=== PATIENT | male | born 1935 | race Caucasian/White ===

== ENCOUNTER 2016-08-19 16:00 | Inpatient (IN) | payer MEDICARE ==
[~2016-08-19] VITALS: Ht 170.2 cm; Wt 79.6 kg
--- NOTE | ~2016-08-19 | CON ---
PATIENT'S NAME: [facility] AGE: 80 Y [address] ROOM: [place] [address] LOCATION: GPCU ADMIT DATE: 08/19/2016 Consultation DISCHARGE DATE: FAMILY PHYSICIAN: TIEN BETANCOURT MD ATTENDING PHYSICIAN: SLIME DIAZ DATE OF CONSULTATION: 08/24/2016 REFERRING PHYSICIAN: NIKA NYE MD This is a [facility] Nephrology consultation. REASON FOR CONSULTATION: Acute kidney injury on chronic kidney disease stage 3 and history of solitary kidney. HISTORY OF PRESENT ILLNESS: This is a 80-year-old male patient who was admitted after a new onset weakness after recent history of right ischemic stroke on 08/07/2016. The patient has had multiple health issues over the past few weeks noting new onset of congestive heart failure with low ejection fraction. The patient was admitted and worked up at that time and found to have an EF of 20% to 25%. The patient also had an MRI of his brain at that time that did show evidence of stroke. The patient has known history of chronic kidney disease stage 3 and is status post left nephrectomy secondary to renal cell carcinoma in 2014. History also included recent diagnosis of prostate cancer, on radiation therapy in [place], [place]. Also include hypertension, peripheral arterial disease status post left carotid endarterectomy, as well as, recent ischemic stroke on the right side. On admission the creatinine wzs 1.9 and today is elevated to 2.1. Dr. Collado would like to pursue a heart catheterization for further evaluation of the patient's cardiac status. However, due to the patient's increasing creatinine from 1.9 to 2.1, Dr. Ruth has been asked to manage the patient while he is hospitalized. He is also asked to provide recommendations for the patient to proceed with left heart catheterization. PAST MEDICAL HISTORY: As listed above including. 1. Congestive heart failure with reduced ejection fraction. PATIENT'S NAME: [facility] AGE: 80 Y [address] ROOM: [place] [address] LOCATION: GPCU ADMIT DATE: 08/19/2016 Consultation DISCHARGE DATE: FAMILY PHYSICIAN: TIEN BETANCOURT MD ATTENDING PHYSICIAN: SLIME DIAZ 2. Chronic kidney disease stage 3. 3. History of left renal cell carcinoma, status post nephrectomy in 2015. 4. CVA. 5. Hypertension. 6. Peripheral artery disease, status post left endarterectomy. 7. Prostate cancer, undergoing radiation. 8. Solitary kidney. PAST SURGICAL HISTORY: As listed above including. 1. Left nephrectomy. 2. Left heart catheterizations, multiple. 3. Left carotid endarterectomy. ALLERGIES: NONE TO MEDICATION. CURRENT HOME MEDICATIONS: Include: 1. Aspirin 81 mg daily. 2. Amlodipine 5 mg daily. 3. Lipitor 20 mg daily. 4. Aspirin 325 mg q.4 hours p.r.n. pain. 5. Toprol-XL 50 mg daily. 6. BuSpar 7.5 mg twice a day. 7. Melatonin 1 mg to 3 mg p.o. at bedtime p.r.n. insomnia. 8. Prilosec 20 mg twice a day. 9. Lisinopril 20 mg daily. 10. Hydrochlorothiazide 12.5 mg p.o. every 48 hours. 11. Nitroglycerin 0.4 mg sublingually every 5 minutes p.r.n. chest pain. 12. Azo-Cranberry tablets one tablet daily. 13. Bowel cleanse one tablet p.o. daily. FAMILY HISTORY: Reviewed and is noncontributory. There is no history of renal disease or dialysis. Family history is significant for hypertension. SOCIAL HISTORY: The patient denies any social addictions. He denies any alcohol or tobacco abuse or illicit drug use. REVIEW OF SYSTEMS: GENERAL: Denies any fever, chills, or night sweats. EYES: No double vision or blurred vision. NOSE: No epistaxis or rhinorrhea. PATIENT'S NAME: [facility] AGE: 80 Y [address] ROOM: [place] [address] [facility] ADMIT DATE: 08/19/2016 Consultation DISCHARGE DATE: FAMILY PHYSICIAN: TIEN BETANCOURT MD ATTENDING PHYSICIAN: SLIME DIAZ MOUTH: No gingival bleeding. Positive left-sided facial droop, residual from recent stroke. THROAT: No sore throat or cough. RESPIRATORY: Denies wheezing or hemoptysis. CARDIOVASCULAR: Denies any chest pain currently, has had recent chest pain and is following with Cardiology. GASTROINTESTINAL: Denies nausea, vomiting, or diarrhea. He is currently n.p.o. GENITOURINARY: He does report some hesitancy with urination. Reports incomplete voiding. Denies any hematuria. History of prostate cancer, under radiation therapy. IMMUNOLOGICAL: He denies recent infections. HEMATOLOGICAL: Denies bruising or easy bleeding. He is on aspirin and Plavix therapy outpatient secondary to CVA. NEUROLOGICAL: He denies depression or anxiety. PHYSICAL EXAMINATION: VITAL SIGNS: Blood pressure is 139/80, respirations 18, pulse 84, temperature 96.8, sats 93% on room air. GENERAL: On exam, this is an alert and oriented, white male who appears his approximate stated age is in no acute distress. He is alert and oriented x3. HEENT: Head: Normocephalic and atraumatic. Eyes: Pupils equal, round, briskly to light and accommodation. EOMs are intact. Nose: Midline. Mouth: No gingival bleeding. Mucous membranes are moist. Throat is without lymphadenopathy or carotid bruits. He does have a scar to the left carotid status post endarterectomy. RESPIRATORY: Lung sounds are clear to auscultation bilaterally. CARDIOVASCULAR: Regular rate and rhythm with grade 2/6 systolic ejection murmur heard best radiating to the carotids. ABDOMEN: Soft, nontender, and nondistended. Bowel sounds positive. EXTREMITIES: Show no signs of peripheral edema, clubbing, or cyanosis. NEUROLOGICAL: There is left facial droop noted. The patient is 4/5 extremity in the left upper extremity as well as the left lower extremity and 5/5 in the right upper extremity. RADIOLOGY: V/Q scan is currently pending. LABORATORY DATA: WBCs 8.5, hemoglobin 15.3, hematocrit 46.1, platelets 160. Glucose is 111, BUN is 38, creatinine 2.1. Sodium 143, potassium 4.4, chloride 106, CO2 is 27, calcium 9.1, albumin is 3.1, phosphorus is 4.4, and magnesium is 2.0. ASSESSMENT AND PLAN: 1. Acute kidney injury on chronic kidney disease stage 3 to 4, this is likely multifactorial secondary to solitary kidney with the use of JOSE PATIENT'S NAME: [facility] AGE: 80 Y [address] ROOM: [address] [place], [place] [address] [facility] ADMIT DATE: 08/19/2016 Consultation DISCHARGE DATE: FAMILY PHYSICIAN: TIEN BETANCOURT MD ATTENDING PHYSICIAN: SLIME DIAZ inhibitors and PPIs as outpatient. Dr. Ruth does recommend that we obtain the most recent outpatient creatinine for comparison. This is likely cardiorenal secondary to the patient's decreased ejection fraction. We will also check a renal ultrasound to rule out obstruction due to the patient's current history of prostate cancer with voiding complaints. At this time, Dr. Ruth does feel that it is okay to restart his JOSE inhibitor for blood pressure management. 2. History of solitary kidney. At this time, Dr. Ruth would prefer to avoid any heart catheterization until further information has been obtained as to the patient's current baseline creatinine. I have discussed this with Dr. Collado via telephone at the time of the exam. 3. Coronary artery disease. Cardiology is following. This patient has been seen and assessed by Dr. Ruth. His care is being conducted in consultation with Dr. Ruth as well as me. We will plan further recommendations as they are forthcoming. In the interim at this time, we do advise against following with a heart catheterization for further evaluation of the patient's coronary status. OUSMANE QUINTANA DNP, TRANSFER CONTROLLER FOR MD CAROLINA LORENZO/modl /[id number] d: 08/25/16 1330 t: 09/08/16 1557, CONSULTATION REPORT
--- NOTE | ~2016-08-19 | ECHO ---
Transthoracic Echocardiography Report (TTE) Demographics Patient Name MAURISIO [facility]OPE[facility] Date of Study 08/26/2016 Patient Number [id number] Visit Number [id number] Date of 1935 Room Number G6307 Gender Male Number Age 80 year(s) Referring Tobias Oquendo Behavioral Therapy Coordinator Jenny Samuel Physician [facility] Avelino Deng Physician Interpreting Tobias Oquendo Front Desk Representative Physician Supervising Ordering Tobias Oquendo MD/ADOLFOP Physician MD Nurse Stress Snow Blower Conclusions Summary Limited echo was performed to re-evaluate LV systolic function. Definity was administered to better delineate endocardial borders. The estimated left ventricular ejection fraction is 35%.WMAs cannot be confidently commented on. Normal RV size and function. Normal sized atria. Normal appearing mitral and tricuspid valves. Procedure Type of Study TTE procedure:2D Echocardiogram, Echo Limited w/o Contrast. Procedure Date Date: 08/26/2016 Start: 07:08 AM Study Location: Inpatient Portable Technical Quality: Fair Indications:Re-evaluate LV systolic function. Appropriate Use Criteria: 9 Patient Status: Routine Contrast Medium: Definity. Amount - 2 ml HR: 69 bpm BP: 152/70 mmHg Allergies - Iodine:(pre medicated with benadryl and solucortef). Signature dtt: Azra Collado dtd: 08/26/16 0708 Physician Self Edit
--- NOTE | ~2016-08-19 | CON ---
PATIENT'S NAME: MAURISIO [facility]OPE[facility] AGE: 80 Y [address] ROOM: [place] [address] LOCATION: [facility] ADMIT DATE: 08/19/2016 Consultation DISCHARGE DATE: FAMILY PHYSICIAN: SYLVIA BETANCOURT MD ATTENDING PHYSICIAN: SLIME DIAZ DATE OF CONSULTATION: 08/23/2016 REFERRING PHYSICIAN: NIKA NYE MD CHIEF COMPLAINT: Right hand numbness, multilevel cervical spinal stenosis. HISTORY OF PRESENT ILLNESS: The patient is a 80-year-old male patient who has multiple medical comorbidities, especially congestive heart failure with very low ejection fraction, was admitted under the hospitalist on August 19, 2016, with acute onset left arm and leg weakness. He was investigated with a brain MRI and that showed evidence of a stroke. During the admission, the patient was complaining of continued constant right hand numbness and intermittent neck pain. He had a cervical spine MRI done during this hospitalization and that showed multilevel degenerative joint disease and spinal stenosis. I was asked to assess the patient with regard to that. I met the patient on the torrez. The patient reported history of right thumb and index finger tingling for over a year. He denied any worsening of that recently. He indicated that prior to the admission, he had an acute onset left arm and leg weakness. He indicated that the weakness is slowly improving. He denied significant neck pain. He is mobilizing without any assistance at home. He denied falls. PAST MEDICAL AND SURGICAL HISTORY: Heart failure, kidney failure, coronary artery disease, hypertension, renal cell carcinoma, peripheral vascular disease, and prostate cancer. MEDICATIONS: Listed in the patient's chart. ALLERGIES: NO KNOWN DRUG ALLERGIES. REVIEW OF SYSTEMS: All points review of systems were asked about. Pertinent positives were mentioned in HPI. SOCIAL HISTORY: PATIENT'S NAME: MAURISIO [facility]OPE[facility] AGE: 80 Y [address] ROOM: [place] [address] LOCATION: [facility] ADMIT DATE: 08/19/2016 Consultation DISCHARGE DATE: FAMILY PHYSICIAN: SYLVIA BETANCOURT MD ATTENDING PHYSICIAN: SLIME DIAZ He denies alcohol drinking. He is a nonsmoker. FAMILY HISTORY: Noncontributory to the patient's presentation. PHYSICAL EXAMINATION: GENERAL: The patient was cooperative and pleasant. HEENT: Head: Atraumatic. Sclerae examination was normal. NECK: He had limited range of motion in all directions. No tenderness to palpation. No palpable masses. LYMPHATIC: No cervical lymphadenopathy. RESPIRATORY: He was not in any respiratory distress. CARDIOVASCULAR: He had palpable pulses in the upper extremities. GAIT: Not done. BACK: Not done. MOUTH AND THROAT: No mucosal lesions. NEUROLOGIC: He was alert and oriented. Pupils were 3 mm and reactive. Motor examination showed pyramidal weakness in the left upper and lower extremities. He had no weakness in the right hand/leg. Sensory examination showed decreased sensation in the right hand. Karen and Babinski signs were negative. No evidence of clonus. INVESTIGATIONS: Cervical spine MRI done on August 22, 2016, which I personally reviewed. It showed evidence of severe multilevel degenerative joint disease throughout the cervical spine. It showed evidence of loss of the normal cervical lordosis. It showed evidence of moderate stenosis at C4-5, C5-6 levels. It also showed evidence of multilevel and bilateral foraminal stenosis. No evidence of acute spinal cord injury. IMPRESSION AND PLAN: A 80-year-old male patient who is currently admitted under the hospitalist for management of an ischemic stroke. The patient is complaining of numbness in his right hand and his cervical spine MRI showed multilevel degenerative joint disease, associated with moderate stenosis at C4-5 and C5-6 levels. The patient has multiple medical comorbidities, especially congestive heart failure with very low ejection fraction. I do not think the patient's acute weakness is related to the cervical spinal stenosis. RECOMMENDATIONS: I recommended nonoperative treatment of moderate in multilevel cervical spinal stenosis. I recommended a use of soft neck collar for comfort. I also indicated that the patient is a very high risk surgical candidate given the congestive heart failure and the other medical comorbidities. I also indicated that upper extremities nerve conduction studies is also needed to PATIENT'S NAME: MAURISIO LOPEZ [facility] AGE: 80 Y [address] ROOM: [id number] [place] [id number] LOCATION: [facility] ADMIT DATE: 08/19/2016 Consultation DISCHARGE DATE: FAMILY PHYSICIAN: SYLVIA BETANCOURT MD ATTENDING PHYSICIAN: SLIME DIAZ evaluate for carpal tunnel syndrome. The patient asked appropriate questions and those were answered to his satisfaction. It was pleasure taking care of this patient and thanks for having us involved. MD NEERU CAMACHO/genet /[id number] CC: MD Sylvia Srivastava MD d: 08/23/16 1753 t: 08/24/16 0753, CONSULTATION REPORT
--- NOTE | ~2016-08-19 | DS ---
PATIENT'S NAME: MAURISIO LOPEZ [facility] AGE: 80 Y [address] ROOM: [place] [address] LOCATION: GPCU ADMIT DATE: 08/19/2016 Discharge Summary DISCHARGE DATE: 09/01/2016 FAMILY PHYSICIAN: Sylvia Hernandez MD ATTENDING PHYSICIAN: Justin Morris ATTENDING PHYSICIAN: Rambo Banks M.D. FINAL DIAGNOSES: 1. Unstable angina. 2. History of coronary artery disease, status post stent. 3. History of chronic kidney disease with single kidney. 4. Percutaneous coronary intervention to left anterior descending. 5. Ejection fraction 37% by MUGA scan. 6. History of congestive heart failure. 7. History of right parietal cerebrovascular accident. 8. Hypertension. 9. Peripheral vascular disease. 10. Prostate cancer history. 11. Left carotid endarterectomy history. CONSULTATIONS: 1. Neurology, Dr. Borrego. 2. Nephrology, Dr. Schuler. 3. Neurosurgery, Dr. Milan. 4. Rehab, Dr. Guerra. 5. Cardiology, Dr. Collado. PROCEDURES: 1. Left heart catheterization by Dr. Collado. 2. Left heart catheterization with PCI by Dr. Collado. REASON FOR ADMISSION: This is a 80-year-old male who presented with weakness. The patient had weakness in his left arm as well as left leg. He was evaluated and then further transferred to [facility] for further evaluation and management of likely CVA. Please see Dr. Morris's admission H and P for further details. DIAGNOSTIC STUDIES: A transthoracic echocardiogram was done and showed hypokinesis of several segments with akinesis of the mid anterior and mid anteroseptal segments as well. Estimated ejection fraction was 20% to 25% with moderate concentric left ventricular hypertrophy. Diastolic assessment revealed grade 1 diastolic dysfunction. Left ventricle and atrium were dilated. Trivial aortic regurgitation was noted. Aortic stenosis, possibly severe was detected as well. A limited echocardiogram was then repeated to re- PATIENT'S NAME: MAURISIO LOPEZ [facility] AGE: 80 Y [address] ROOM: [place] [address] LOCATION: GPCU ADMIT DATE: 08/19/2016 Discharge Summary DISCHARGE DATE: 09/01/2016 FAMILY PHYSICIAN: Sylvia Hernandez MD ATTENDING PHYSICIAN: Justin Morris evaluate left ventricular systolic function and showed left ventricular ejection fraction of 35% with wall motion abnormalities that could not be confidently commented on. Normal size atria were noted. The patient had a left heart catheterization with Dr. Collado that showed severe 1 vessel coronary artery disease. The patient had an LAD disease. The patient was then taken down for PCI and cath showed successful PCI of the mid LAD coronary artery using a drug-eluting stent, also showed successful PCI of the distal LAD coronary artery using a drug-eluting stent. Accu-Cheks were done on admission and were in the range of 88 to 111. CPK 120. Troponin I less than 0.04 x4. ProBNP 4449. Serial CBCs were done and showed essentially normal white count on admission. White count on admission was 6.1, at the time of discharge was 13.3 and was likely thought to be reactive. Hemoglobin 14.8 on admission, 11.4 at discharge. Platelet count 140 on admission and 165 at discharge. Serial BMP showed normal electrolytes. The patient's BUN was 35 on admission and 49 at discharge, creatinine 1.8 on admission and 2.2 at the time of discharge. Liver function tests were normal. Magnesium 2.2. The patient had CKD 3. GFR was 29 on discharge. Lipid panel showed total cholesterol 186, triglycerides 161, HDL 39, and LDL 115. The patient was placed on a heparin drip that was monitored with PTT HP levels. UA was done on the day of discharge and it was negative for bacteria and leukocytes. UA done prior during this admission was negative for bacteria as well. Urine chloride random 77, urine sodium random 70. Procalcitonin level on the day of discharge was done and was 0.07. TSH 1.1. CK-MB 2.7. Urine potassium 44.0. The patient had a P2Y12 reaction that was 206 and was within range. D-dimer 1.45. MRI brain without contrast was done on admission for left-sided weakness and showed small [id number] ischemic infarcts to the right frontoparietal centrum semiovale and right parietal subcortex, likely correlating with left- sided weakness. Moderate brain atrophy noted. Cervical spine without contrast MRI scan showed multilevel degenerative changes throughout the cervical spine with moderate canal stenosis between C3-C4 and C5-C6, asymmetric disk protrusion to the right at C3 and C4 noted. Chest x-ray was done and showed no vascular congestion or acute parenchymal infiltrate. The patient underwent a V/Q scan for elevated D-dimer that showed low probability for pulmonary embolism. Ultrasound of the kidneys was done for possible obstruction and a history of prostate cancer and showed no ultrasound findings of right renal collecting system obstruction, surgically absent left kidney noted. The patient had belching. X-ray of abdomen showed generally prominent stool suggesting constipation, otherwise negative. The patient had a MUGA scan that showed ejection fraction of 34% on nuclear medicine gated cardiac study. Chest x-ray was done on the day of discharge for slight dyspnea and showed no vascular congestion or acute parenchymal infiltrate. PATIENT'S NAME: MAURISIO LOPEZ [facility] AGE: 80 Y [address] ROOM: [address] [place], [place] [address] LOCATION: GPCU ADMIT DATE: 08/19/2016 Discharge Summary DISCHARGE DATE: 09/01/2016 FAMILY PHYSICIAN: Sylvia Hernandez MD ATTENDING PHYSICIAN: Justin Morris A Urine culture was negative. HOSPITAL COURSE: This is a 80-year-old male who was transferred from an outlying facility. The patient had presented with left-sided weakness. He was evaluated and was thought to have a CVA. He was then transferred to [facility]. At [facility], the patient was evaluated by Teleneurology. He underwent an MRI brain that showed right parietal CVA. He was placed on aspirin and statin. Stroke workup was then initiated as well. His blood pressure was controlled. Echocardiogram was done and findings are as above. The patient's neurologic deficits then resolved. He was placed on aspirin, statin, and Plavix. Speech Therapy and PT/OT followed up with the patient. Rehab consult was obtained, but the patient did not require rehab placement. During the workup, the patient was found to have low ejection fraction. Cardiology was consulted. He underwent a left heart catheterization initially that showed severe LAD disease. The patient then underwent left heart catheterization with bicarb protocol to protect him from kidney dysfunction. The patient had developed acute kidney injury after his first left heart catheterization. Nephrology was consulted and followed up with the patient. His kidney function was closely monitored since he has a single solitary kidney secondary to surgical considerations. The patient's kidney function resolved, HERNANDEZ resolved. The patient then underwent PCI with Dr. Collado and received 3 stents to his LAD. The patient continued to do well. He had a slight hematoma in the right groin subsequent to the second PCI. The patient continued to do well. He was ambulating in the hallway. His HERNANDEZ had resolved. His kidney function was stable on the day of discharge. The patient did develop leukocytosis on discharge day; however, he did not have any fever. Chest x-ray showed no pneumonia. Procalcitonin level was normal. UA showed negative bacteria. The patient continued to do well, and he was discharged and asked to follow up with his primary care physician. DISCHARGE INSTRUCTIONS: The patient discharged on a cardiac diet with activity as tolerated. He is advised no driving until re-evaluated by PCP. Follow up with Dr. Guerra in 1 week time. Follow up with PCP, Dr. Sylvia Hernandez in 2 days' time. PCP to check a CBC and a BMP. Groin precautions to be observed. The patient to follow up with Dr. Schuler, Nephrology, on September 08 and needs a renal panel in 1 week. Follow up with Cardiac Rehab at [place], start in 7 days. Follow up with Dr. Collado in 7 days with BMP. The patient needs a bilateral nerve conduction study in upper extremities to check for carpal tunnel syndrome as outpatient, PCP to arrange. DISCHARGE MEDICATIONS: 1. Aspirin 81 mg p.o. daily. PATIENT'S NAME: MAURISIO LOPEZ [facility] AGE: 80 Y [address] ROOM: [address] [address] LOCATION: GPCU ADMIT DATE: 08/19/2016 Discharge Summary DISCHARGE DATE: 09/01/2016 FAMILY PHYSICIAN: Sylvia Hernandez MD ATTENDING PHYSICIAN: Justin Morris 2. Lipitor 80 mg p.o. at bedtime. 3. BuSpar 7.5 mg p.o. at bedtime. 4. Lopressor 25 mg p.o. t.i.d. 5. Prilosec 20 mg p.o. b.i.d. 6. Flomax 0.4 mg p.o. daily. 7. Brilinta 90 mg p.o. b.i.d. 8. Tylenol 650 mg p.o. q.6 hours p.r.n. pain. 9. Melatonin 1 mg p.o. at bedtime p.r.n. insomnia. 10. Cranberry tablet, 1 tablet p.o. daily. 11. Bowel cleanse 1 tablet p.o. daily with food per home regimen. This patient was managed by Hospitalist, Cardiology, and Neurology teams during this admission. RAMBO BANKS MD MT/modl /[id number] CC: Sylvia Hernandez MD d: 09/02/16 0944 t: 09/06/16 1327, DISCHARGE SUMMARY
--- NOTE | ~2016-08-19 | CATH ---
Cardiac Diagnostic Report Demographics Patient Name JOHN Raza Gender Male Date of 1935 Age 80 year(s) Patient Number [id number] Date of Study 08/25/2016 Visit Number [id number] Room Number G6[address] [place] [id number] Ht 170.18 cm Wt 79 kg Referring David Ward MD Primary Physician Physician Alexandra West MD Performing Tobias Secondary Physician Physician Azra LEUNG Diagnostic Tobias Assisting Physician Physician Azra LEUNG Interventional Physician Family Services Coordinator Physician Findings and Conclusions Diagnostic Findings and Conclusion Calcification involving proximal coronaries. LVEDP 14 Mild valvular aortic stenosis, gradient across aortic valve of 14 mmHg, Severe one vessel coronary artery disease. Contrast use = 45ml. Diagnostic Recommendations Maximize medications. Follow BMP, monitor renal function. Bring back for mid to distal LAD PCI. Procedure Description The patient was brought to the diagnostic cardiac catheterization-EP laboratory in the fasting, non-sedated state. Informed consent was obtained in the written and verbal form after the risks and benefits were explained. The patient had no further questions and agreed to proceed. The planned puncture-incision site(s) were shaved and prepped with ChloraPrep and draped in the usual sterile manner. Conscious sedation, supplemental oxygen, and pain control medications were delivered by a registered nurse under physician guidance. Surface ECG rhythm, blood pressure measurement, and pulse oximetry were monitored throughout the procedure. Arterial access. The access site was infiltrated with lidocaine. The vessel was entered with the Seldinger technique. A sheath was advanced into the vessel and used for catheter placement. Selective left coronary angiography. A catheter was advanced into the left coronary vessel ostium under Fluoroscopic guidance. Contrast was injected by hand. Images were obtained in multiple projections. Selective right coronary angiography. A catheter was advanced into the right coronary vessel ostium under fluoroscopic guidance. Contrast was injected by hand. Images were obtained in multiple projections. Left heart catheterization. A catheter was advanced across the aortic valve to the left ventricle under fluoroscopic guidance. Resting hemodynamics were obtained. Arterial artery hemostasis was achieved. The patient was transferred to PCU via cart accompanied by a nurse. The patient left the laboratory in stable condition. Diagnostic Cath Status: Urgent Procedure Procedure Type Diagnostic procedure:Angiography:, Coronary Angios w/[facility] Indications: Chest pain. The procedure was explained in detail to the patient. Risks, complications and alternative treatments were reviewed. Written consent was obtained. Medications Reviewed with Patient prior to Procedure. Angiographic Findings Dominance: Right Cardiac Arteries and Lesion Findings LMCA: Single stenosis. Lesion on LMCA: Mid subsection.20% stenosis . LAD: Multiple stenosis.D1 and D2 medium sized.There is a previous stent on 2nd Diag. Lesion on Prox LAD: Proximal subsection.20% stenosis . Lesion on Mid LAD: Mid subsection.90% stenosis .Culprit lesion. Comments:Type III mid to distal 80-90% long stenosis after D2. Lesion on 2nd Diag: Mid subsection.50% stenosis . LCx: Diffuse irregularity.Moderate diffuse disease. RCA: Diffuse irregularity.Dominant. Moderate diffuse disease. Coronary Tree Procedure Data Procedure Date Date: 08/25/2016Start: 03:15 PMEnd: 04:00 PM Entry Locations - Antegrade Percutaneous access was performed through the Right Femoral artery (Primary location). A 7 Fr sheath was inserted. Hemostasis was successfully obtained using Perclose ProGlide (Jain). Closure Comments: Deployed by Yunior Rust.. Procedure Medications Order and Administration + + + +-------+ !Time !Medication !Dosage !Route ! + + + +-------+ !08/25/2016 03:13 PM !Fentanyl !25 mcg ! ! + + + +-------+ !08/25/2016 03:15 PM !Versed !0.5 mg ! ! + + + +-------+ !08/25/2016 03:23 PM !Oxygen !2 l/min !NC ! + + + +-------+ !08/25/2016 03:43 PM !Fentanyl !25 mcg !I.V. ! + + + +-------+ Devices Used - A6 Fr. BS JL 4 Diag. Catheterwas used for:Left coronary angiography. - A6 Fr. BS JR 4 Diag. Catheterwas used for:Right coronary angiography. Contrast Material - Isovue 49108 ml Fluoroscopy Time: Diagnostic: 5:06 minutes. Total: 5:06 minutes. Fluoroscopy Dose: Diagnostic: 939 mGy. Total: 939 mGy. Estimated Blood Loss: 10 ml. Medical History Performed Procedures and Imaging Results - No ACC stress or imaging studies were performed. Allergies - Iodine:(pre medicated with benadryl and solucortef). Risk Factors The patient risk factors include:cerebrovascular disease, hypertension, last creatinine: 2.2 mg/dl, creatinine clearance: 30.92 ml/min, dyslipidemia, prior heart failure and prior [place] . Admission Data Admission Date: 08/19/2016 Admission Time: 04:53 PM Admit Source: [facility] care [facility] Insurance Payors: Medicare. Admission Medications + +------+------+ + + + + !Medication !Dosage!Times !Last !Last !Administered !Comments ! ! ! !Per !Delivery !Delivery ! ! ! ! ! !Day !Date !Time ! ! ! + +------+------+ + + + + !Beta Caryn! ! ! ! !Yes ! ! !(any) ! ! ! ! ! ! ! + +------+------+ + + + + !Statin (any)! ! ! ! !Yes ! ! + +------+------+ + + + + !Aspirin ! ! ! ! !Yes ! ! !(any) ! ! ! ! ! ! ! + +------+------+ + + + + !Clopidogrel ! ! ! ! !Yes ! ! + +------+------+ + + + + Clinical Evaluation Leading to Procedure - The patient's CAD presentation was assessed as: Unstable angina. - The patient's anginal syndrome during the past two weeks was assessed as: Class IV according to the [place] Cardiovascular Society Classification System (CCS). Anti-anginal medications were prescribed during the past two weeks. The medication is: Beta Blockers. [facility] . Ejection Fraction - 08/20/2016 - Method: Echocardiography. EF%: 25. Hemodynamics Condition: Rest O2 Consumption: Estimated: 251.22Heart Rate: 79 bpm Pressures (mmHg) +-----+ + !Site !Pressure ! +-----+ + !AO !2/0 (1) ! +-----+ + !AO !144/52 (86) ! +-----+ + !LV !158/7 ,13 ! +-----+ + !LV !160/9 ,14 ! +-----+ + !AO !143/63 (96) ! +-----+ + !LV !160/8 ,13 ! +-----+ + !AO !145/65 (98) ! +-----+ + Valve Gradients and Areas + +---------+---------+---------+ +---------+ + !Valve !Peak !Mean !Area !Index !Flow !Source ! + +---------+---------+---------+ +---------+ + !Aortic !17 !17 ! ! ! ! ! + +---------+---------+---------+ +---------+ + !Aortic !17 !17 ! ! ! ! ! + +---------+---------+---------+ +---------+ + Shunts Oxygen Values O2 Capacity 189.04 O2 Consumption 251.22 Signatures dtt: Azra Collado dtd: 08/25/16 1515 Physician Self Edit
--- NOTE | ~2016-08-19 | HP ---
PATIENT'S NAME: MAURISIO LOPEZ [facility] AGE: 80 Y [address] ROOM: [place] [address] LOCATION: GPCU ADMIT DATE: 08/19/2016 History & Physical DISCHARGE DATE: FAMILY PHYSICIAN: Victorino Ramsey MD ATTENDING PHYSICIAN: SLIME DIAZ DATE OF SERVICE: CHIEF COMPLAINT: Weakness. HISTORY OF PRESENT ILLNESS: A 80-year-old gentleman with a past medical history of a recent ischemic stroke on the right side; heart failure with reduced ejection fraction, last known ejection fraction 20% per patient; chronic kidney disease, stage III; solitary kidney secondary to left renal resection because of renal carcinoma; coronary artery disease with multiple stenting in the past; hypertension; peripheral arterial disease, status post left carotid endarterectomy, presented to [facility] with weakness which started at 12:30 this afternoon. While he was at home, he felt weak in his left arm as well as left leg and was not able to open door knobs and he started feeling numb in his left side of the face. It was not associated with any nausea, vomiting, or any chest pain. He denied any shortness of breath, PND, or leg swelling. He went to the [facility] and where on arrival [facility] Stroke Sale was 9. Neurology consultation was made at that time, and decision was made against the administration of the tPA secondary to contraindication of a recent ischemic stroke which he had on 08/07/2016 per MRI report. We do not have any other data from 2 weeks ago regarding stroke workup he had down at [facility]. REVIEW OF SYSTEMS: All other systems were reviewed and were negative except what is mentioned in the HPI. PAST MEDICAL HISTORY: Congestive heart failure with reduced ejection fraction; chronic kidney disease, stage III; coronary artery disease; CVA; hypertension; renal cell carcinoma; peripheral arterial disease; left endarterectomy; prostate cancer, undergoing radiation; and solitary kidney. MEDICATIONS: Being reconciled. ALLERGIES: NO KNOWN DRUG ALLERGIES. PATIENT'S NAME: MAURISIO LOPEZ [facility] AGE: 80 Y [address] ROOM: [place] [address] LOCATION: GPCU ADMIT DATE: 08/19/2016 History & Physical DISCHARGE DATE: FAMILY PHYSICIAN: Victorino Ramsey MD ATTENDING PHYSICIAN: SLIME DIAZ SOCIAL HISTORY: No ongoing alcohol or tobacco abuse. FAMILY HISTORY: Family history is significant for hypertension. PHYSICAL EXAMINATION: VITAL SIGNS: 170/90, 72, 16, and afebrile. GENERAL: In no acute distress. Alert and oriented x3. HEENT: Head atraumatic, normocephalic. Eyes: Nonicteric. No pallor. Oropharynx: Moist mucous membranes. CARDIOVASCULAR: S1, S2. Systolic ejection murmur radiating to the carotids. RESPIRATORY: Clear to auscultation bilaterally. ABDOMEN: Soft, nontender, and nondistended. Bowel sounds present. EXTREMITIES: No clubbing, cyanosis, or edema. PSYCH: Normal affect, mood, and speech. NEURO: Left facial droop is noted. 4/5 extremity power in left upper extremity as well as left lower extremity. Right extremity is 5/5 power. MUSCULOSKELETAL: No muscle tenderness or joint swelling noted. DIAGNOSTIC DATA: CAT scan from the outside facility did not show any acute intracranial abnormality. Troponin 1 set was negative. Hemoglobin was 18, white count was 8.1, platelets 175, and hematocrit 42. ASSESSMENT AND PLAN: Acute stroke leading to left-sided weakness; heart failure with reduced ejection fraction, compensated at this point; essential hypertension; solitary kidney; peripheral arterial disease, status post left endarterectomy; prostate cancer; history of renal carcinoma; recent ischemic stroke on 08/07/2016. ASSESSMENT: We are going to make this patient n.p.o. and admit to inpatient status. CTA of the head and neck will be done after GFR is available. Echo will be done in the morning. Neurology consultation will be obtained. We will start the patient on aspirin and Lipitor. We will allow permissive hypertension. SCDs will be placed for the DVT prophylaxis. Speech evaluation and PT/OT. We will obtain lipid profile as well as TSH levels. ProBNP levels have already been ordered. The patient is full code. SLIME DIAZ MD PATIENT'S NAME: MAURISIO LOPEZ [facility] AGE: 80 Y [address] ROOM: [place] [address] LOCATION: [facility] ADMIT DATE: 08/19/2016 History & Physical DISCHARGE DATE: FAMILY PHYSICIAN: Victorino Ramsey MD ATTENDING PHYSICIAN: SLIME DIAZ /[id number] D: [id number] T: [id number] HISTORY & PHYSICAL
--- NOTE | ~2016-08-19 | CON ---
PATIENT'S NAME: MAURISIO LOPEZ [facility] AGE: 80 Y [address] ROOM: [place] [address] LOCATION: [facility] ADMIT DATE: 08/19/2016 Consultation DISCHARGE DATE: FAMILY PHYSICIAN: Victorino Ramsey MD ATTENDING PHYSICIAN: SLIME MORRIS REFERRING PHYSICIAN: NIKA NYE MD CONSULTATION NOTE REQUESTING PHYSICIAN: This is consult for Dr. Morris, hospitalist. HISTORY OF PRESENT ILLNESS: This pleasant 80-year-old gentleman is referred for rehab evaluation, admitted on 08/19/2016 with left-side sudden onset of weakness, left upper extremity and to some extent left lower extremity. He also had some numbness in his left face too. No nausea. No headache. No double vision. No trauma. No falling, however, he has been evaluated and was found not a candidate for tPA. MEDICAL HISTORY: 1. Recent left-sided ischemic stroke, questionable. 2. History of coronary artery disease with ejection fraction of 20%. 3. Chronic kidney disease, stage 3. 4. Status post left kidney resection secondary to CA of kidney. 5. Congestive heart failure. 6. Peripheral vascular disease. 7. Hypertension. 8. Coronary artery disease with multiple stenting per history. 9. Left carotid endarterectomy. At the present time, he is on radiation for CA of the prostate. He feels now better, can move left upper and lower extremity with a muscle strength of about, at best at 4-, slightly decreased coordination, and very mild left facial droop. Tongue and soft palate are moving symmetrical. There is no visual cut at the present time. Voice is clear and not wet. Soft palate and tongue are moving symmetrically. At the present time, he has no visual cut and/or neglect. VITAL SIGNS: Blood pressure 175/80, temperature 97.5, pulse 75, and respiratory rate 17. He is 5 feet 7 inches and weighs 77.7 kg. Denied any dizziness. No seizure disorder. No other complaints such as chest PATIENT'S NAME: MAURISIO LOPEZ [facility] AGE: 80 Y [address] ROOM: [place] [address] LOCATION: [facility] ADMIT DATE: 08/19/2016 Consultation DISCHARGE DATE: FAMILY PHYSICIAN: Victorino Ramsey MD ATTENDING PHYSICIAN: SLIME MORRIS pain, palpitations, shortness of breath, cough, fever, or expectoration. Controls his bowel and bladder without much difficulty. Bladder, a little bit more difficult secondary to CA of the prostate. MEDICATIONS: He is on the following medications: 1. Lipitor. 2. Aspirin. 3. Lactated Ringer. 4. Protonix. ASSESSMENT AND PLAN: He can ambulate up to 110 feet from time with front-wheeled walker and contact guard assistance. I feel this gentleman has made good progress. He can probably be followed on an outpatient basis. I will follow him while here, however, I want to advise him to follow with me in 1 week. No driving until he is re-evaluated. All the above was explained to him in detail. He verbalized understanding. I will follow alongside with you. Thank you for this referral. MD [place] ALVES/modl /[id number] d: [id number]/20/161945 t: 08/23/16 0846, CONSULTATION REPORT
--- NOTE | ~2016-08-19 | CON ---
PATIENT'S NAME: MAURISIO LOPEZ [facility] AGE: 80 Y [address] ROOM: [address] [address] [facility] ADMIT DATE: 08/19/2016 Consultation DISCHARGE DATE: FAMILY PHYSICIAN: TIEN BETANCOURT MD ATTENDING PHYSICIAN: SLIME DIAZ DATE OF CONSULTATION: 08/23/2016 REFERRING PHYSICIAN: NIKA NYE MD Dear Colleague: Thank you for asking me to see Mr. Lopez who is a 80-year-old male patient who was transferred from [place] [facility] with what appears to be a left-sided CVA/TIA. That has since then gotten significantly better, especially his legs. He still have some symptoms pertaining to his left upper extremity. However, he has also ongoing problems with decrease in ejection fraction, prior MIs, as well as history of ongoing chest pain today, which seemed to have just resolved before I walked into his room. 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 Sometime for the past 4 to 5 months, he has had several admissions to the hospital with chest pains, where he will be given nitroglycerin and that will resolve the pain. He has seen Dr. Solomon in [place] off and on. He does not recall having any actual cardiac catheterization procedures done. He has been told that he has congestive heart failure and fluid retention. He is currently in functional class 3 to 4 with some paroxysmal nocturnal dyspnea without any orthopnea. He denies lightheadedness even though he has dizziness. He denies syncope. He does have some palpitations and denies any ankle swelling now. The patient has history of hypertension and elevated cholesterol. He denies diabetes, tobacco abuse, or family history of premature coronary artery disease. He has prior history of ME. He denies rheumatic fever or heart murmur. He has history of congestive heart failure and he has no arrhythmias. MEDICATIONS: His medications are, 1. Aspirin 81 mg a day. 2. Amlodipine 5 mg once a day. 3. Atorvastatin 20 mg a day. 4. Metoprolol 50 mg once a day. 5. Buspirone 7.5 mg b.i.d. PATIENT'S NAME: MAURISIO LOPEZ [facility] AGE: 80 Y [address] ROOM: [place] [address] LOCATION: [facility] ADMIT DATE: 08/19/2016 Consultation DISCHARGE DATE: FAMILY PHYSICIAN: TIEN BETANCOURT MD ATTENDING PHYSICIAN: SLIME DIAZ 6. Melatonin 1 mg q.h.s. p.r.n. 7. Omeprazole 20 mg b.i.d. 8. Lisinopril 20 mg a day. 9. Hydrochlorothiazide 12.5 mg every 48 hours. 10. Nitroglycerin 0.4 mg p.r.n. chest pain. 11. Cranberry. 12. Bowel cleanse. ALLERGIES: IODINATED CONTRAST MEDIA. PAST MEDICAL HISTORY: 1. Cholecystectomy. 2. Left kidney cancer removed. 3. Back surgery. 4. Prostate cancer, radiated. SOCIAL HISTORY: The patient is single. He denies abusing alcohol. His appetite and weight are stable. Sleep is poor. FAMILY HISTORY: No premature coronary artery disease. REVIEW OF SYSTEMS: A 12-point review of systems reveal, 1. Sinus drainage. 2. Questionable history of stroke in his left eye. 3. Dry cough. 4. Stomach ulcers. 5. DJD. 6. Anxiety. 7. Single kidney. PHYSICAL EXAMINATION: VITAL SIGNS: On examination, his blood pressure is 160/80, heart rate is in the 70s and regular, respirations 18, afebrile. HEENT: Normal. NECK: Supple with no JVD, thyromegaly, lymphadenopathy, or carotid bruit. HEART: PMI is not well located. First and second heart sounds are regular. He does have a systolic murmur, grade 2/6, best heard in the aortic area. The aortic second sound is very soft. CHEST: Clear to auscultation. ABDOMEN: Soft. EXTREMITIES: Reveal no edema. PATIENT'S NAME: MAURISIO LOPEZ [facility] AGE: 80 Y [address] ROOM: [place] [address] LOCATION: [facility] ADMIT DATE: 08/19/2016 Consultation DISCHARGE DATE: FAMILY PHYSICIAN: TIEN BETANCOURT MD ATTENDING PHYSICIAN: SLIME DIAZ CENTRAL NERVOUS SYSTEM: Overall appears to be intact. ASSESSMENT: 1. Intermittent chest pain, last episode of that is just getting better now. 2. History of myocardial infarction with low ejection fraction. 3. History of heart failure. 4. No arrhythmias noted. 5. Hypertension. 6. Elevated cholesterol. 7. He does have some dizziness. 8. Palpitations. 9. Functional class 3. 10. Ongoing intermittent chest pains. RECOMMENDATION: We will put him on a regular aspirin, heparin, and he is already on Lopressor. If he has positive troponins, he will have, based on his symptom complex, either a stress test or cardiac catheterization if he has not had any. In the meantime, we will get hold of all his old medical records from Dr. Jeffrey Bain's office. MD PHUC CASTILLO/genet /[id number] d: 08/24/16210 t: 08/29/16 1605, CONSULTATION REPORT
--- NOTE | ~2016-08-19 | CON ---
PATIENT'S NAME: MAURISIO LOPEZ [facility] AGE: 80 Y [address] ROOM: [address] [place], [place] [address] LOCATION: [facility]U ADMIT DATE: 08/19/2016 Consultation DISCHARGE DATE: FAMILY PHYSICIAN: Victorino Ramsey MD ATTENDING PHYSICIAN: SLIME DIAZ DATE OF CONSULTATION: 08/20/2016 REFERRING PHYSICIAN: NIKA NYE MD DATE AND TIME: On 08/20/2016 at 09:50 a.m. CHIEF COMPLAINT: Weakness. HISTORY OF PRESENT ILLNESS: This is a 80-year-old gentleman who has a past medical history of a recent ischemic stroke on the right side. The [facility] did consult our Tele-Neuro Service for the possibility of tPA, but since he had a recent stroke a couple weeks ago, the patient was deemed not to be a tPA candidate. Of note, the patient also suffers with heart failure with an ejection fraction of around 20%, chronic kidney disease stage III, solitary kidney secondary to left renal resection because of carcinoma, coronary artery disease with multiple stents, hypertension, peripheral artery disease, left carotid endarterectomy, and he is currently under radiation treatment for prostate cancer. On the day of admission, which was 08/19/2016, the patient had gone to his normal radiation treatment and had gotten home. Then, he states he had left arm and left leg weakness and numbness. He also stated his jaw was numb and it was spreading to his face. The time of onset was around 12 o'clock. He feels like his symptoms were getting worse, so he could not dial the phone, so since his right arm works he drove to the emergency room at the [facility]. He did not have any chest pain, abdominal pain, nausea, shortness of breath, fever, chills, or headache with this episode. REVIEW OF SYSTEMS: CONSTITUTIONAL: He denies any recent illnesses. No fever. No chills. SKIN SYMPTOMS: No rash. EYES SYMPTOMS: He does have some blurry vision in his left eye. It is blurry. He states it was that way with his stroke of 2 weeks ago. ENT SYMPTOMS: No sore throat or nasal congestion. No sinus pain. RESPIRATORY: No shortness of breath. No cough. CV: No chest pain. No palpitations. GI: No abdominal issues. No change in bowel movements. No nausea or vomiting. : No change. No dysuria or hematuria. PATIENT'S NAME: MAURISIO LOPEZ [facility] AGE: 80 Y [address] ROOM: [address] [place], [place] [address] LOCATION: [facility]PCU ADMIT DATE: 08/19/2016 Consultation DISCHARGE DATE: FAMILY PHYSICIAN: Victorino Ramsey MD ATTENDING PHYSICIAN: SLIME DIAZ MUSCULOSKELETAL SYMPTOMS: Just the weakness and numbness. No pain in the joints. HEALTH STATUS FOR ALLERGIES: He does have a reaction to iodine. We do not know what reaction that is. PAST SURGICAL HISTORY: Cholecystectomy and nephrectomy. FAMILY HISTORY: Diabetes mellitus. Positive for hypertension. PAST MEDICAL HISTORY: Congestive heart failure with an EF of 20% per the patient's report; chronic kidney disease stage III; coronary artery disease; CVA; hypertension; renal cell carcinoma; peripheral artery disease; left endarterectomy; prostate cancer, undergoing radiation; and a solitary kidney. PHYSICAL EXAMINATION: VITAL SIGNS: His blood pressure is 154/82, pulse 74, respirations 16, and afebrile. GENERAL: The patient is sitting in the chair in no acute distress. He is able to participate in the exam. HEENT: Head is atraumatic and normocephalic. Eyes: Nonicteric. Pupils equal and reactive to light and accommodation. CARDIOVASCULAR: He has an S1 and S2. He does have a murmur present. RESPIRATORY: Clear to auscultation bilaterally. ABDOMEN: Soft, nontender, and nondistended. NEURO: He is alert and oriented x4. As far as his NIH stroke scale goes: #1A, level of consciousness, alert, 0. #1B, LOC questions, 0. #1C, LOC commands 0. #2, best gaze, normal 0. #3, visual is #1, partial hemianopia. #4, facial palsy, is a 1 for minor paralysis of the left face. #5A, motor arm left is 1 for slight drift. #5B, motor arm right is 0. #6A, motor leg left is 0. #6B, motor leg right is 0. Limb ataxia is 0. Sensory is 1. Best language is 0. Dysarthria is mild for 1, and extinction and inattention are 0. He is alert and oriented x4. DIAGNOSTIC DATA: CAT scan from the outside facility did not show any acute intracranial abnormality. ASSESSMENT AND PLAN: Acute stroke leading to left-sided weakness. 1. Evaluation of stroke. We will get an MRI to evaluate the patient's stroke. This may help us discern why he is having these strokes. PATIENT'S NAME: MAURISIO LOPEZ [facility] AGE: 80 Y [address] ROOM: [place] [address] [facility] ADMIT DATE: 08/19/2016 Consultation DISCHARGE DATE: FAMILY PHYSICIAN: Victorino Ramsey MD ATTENDING PHYSICIAN: SLIME DIAZ 2. Hyperlipidemia. We will bump his atorvastatin to 40 mg p.o., which is considered an intensive dose. 3. Thrombotic therapy. He is on aspirin 81 mg. We will add Plavix 75 mg, so he will be on dual anti-platelet therapy. In the light of having these 2 events in such a short time, this is appropriate therapy. 4. Reduced ejection fraction. We will follow with echo to determine his true ejection fraction and make recommendations based on the results of that. 5. History of carotid endarterectomy. We will get carotids and evaluate those for possible causative agents. 6. Dysphagia. We will have Speech work with the patient on swallowing and his dictation. We will also get PT, OT, and Dr. Guerra to see the patient to mobilize him and return to function as soon as possible. We would like to thank you for the opportunity to take care of this patient. Please let us know if you have any questions. The plan of care was developed with Dr. Perez, who also examined the patient with me. JERAMY IBANEZ APRN FOR PORSCHE PEREZ MD PP/leonelal /[id number] d: 08/20/164 t: 08/26/16 1234, CONSULTATION REPORT
--- NOTE | ~2016-08-19 | ECHO ---
Transthoracic Echocardiography Report (TTE) Demographics Patient Name MAURISIO LOPEZ Date of Study 08/20/2016 Patient Number [id number] Visit Number [id number] Date of 1935 Room Number G[address]19 Accession Number [id number] Gender Male Age 80 year(s) Referring Braulio Gleason MD Medical Lab Technician Andrew Blackwood RVT, Physician RDCHRISTOPHER Physician Interpreting Cecilia Awad Manager Art Physician A Supervising Ordering Physician Alexandra West MD/LAXMI LEUNG Nurse Stress Care Giver Conclusions Contractility Score Summary At rest the following contractility abnormalities were noted: Hypokinesis of the Mid rivas-lateral, the Mid inferior, the Mid infero-lateral, the Basal infero-lateral, the Apical inferior, the Basal rivas-septal, the Apical lateral, the Apical anterior, the Basal anterior, the Basal inferior and the Basal rivas-lateral segments; Akinesis of the Mid anterior, the Mid rivas-septal, the Mid infero-septal, the Apical septal, the Basal infero-septal and the Apical cap segments. Summary The estimated left ventricular ejection fraction is 20-25%. Moderate concentric left ventricular hypertrophy. Moderate concentric left ventricular hypertrophy. Diastolic assessment reveals Grade I diastolic dysfunction. The left ventricle is mildly dilated . The left atrium is moderately dilated. There is no evidence of patent foramen ovale or atrial septal defect by color Doppler. Mild mitral regurgitation by color Doppler. There is trivial aortic regurgitation. There is aortic stenosis possibly severe . By the Continuity Equation the peak velocity is 2.87 m/s, the mean gradient is 17 mmHg, and the valve area based on the continuity equation is .66 cm2, stroke volume index is 17.67 ml/m2. Dobutamine Echo may be helpful The ascending aorta appears mildly dilated. The maximum diameter measures 3.6 cm. Procedure Type of Study TTE procedure:2D Echocardiogram. Procedure Date Date: 08/20/2016 Start: 10:32 AM Study Location: Inpatient Portable Technical Quality: Adequate visualization Indications:CVA. Appropriate Use Criteria: 8 Patient Status: Routine HR: 70 bpm BP: 145/83 mmHg Allergies - Iodine:(pre medicated with benadryl and solucortef). M-Mode/2D Measurements LV Diastolic Dimension: 5.36 cm LV Systolic Dimension: 4.78 cm LV Septum Diastolic: 1.87 cm LV PW Diastolic: 1.23 cm AO Root Dimension: 3.1 cm Cardiac Output: 2.63 l/min AV Cusp Separation: 1.2 cm RV Diastolic Dimension: 2.49 cm LA volume: 78 ml LVOT: 1.8 cm RV Base: 3.28 cm LVOT VTI: 14.8 cm RV Mid: 2.24 cm LV Stroke volume: 37.64 ml TAPSE: 1.4 cm TDI-S': 8.77 cm/s Doppler Measurements AV Peak Velocity: 2.87 m/s MV Peak E-Wave: 0.74 m/s AV Peak Gradient: 32.95 mmHg MV Peak A-Wave: 0.76 m/s AV Mean Gradient: 17 mmHg MV E/A Ratio: 0.97 LVOT Peak Velocity: 0.66 m/s MV P1/2t: 85 msec TR Gradient:9.49 mmHg PV Peak Velocity: 0.72 m/s PV Peak Gradient: 2.04 mmHg E' Septal Velocity: 0.03 m/s A' Septal Velocity: 0.07 m/s E' Lateral Velocity: 0.04 m/s A' Lateral Velocity: 0.07 m/s Findings Left Ventricle Moderate concentric left ventricular hypertrophy. Diastolic assessment reveals Grade I diastolic dysfunction. The left ventricle is mildly dilated . Right Ventricle Normal right ventricular size Mildly reduced right ventricular function. Left Atrium The left atrium is moderately dilated. There is no evidence of patent foramen ovale or atrial septal defect by color Doppler. Right Atrium Normal right atrial size. IVC measures 1.78 cm with inspiratory collapse. Mitral Valve Mild mitral regurgitation by color Doppler. Aortic Valve There is trivial aortic regurgitation. There is aortic stenosis possibly severe . By the Continuity Equation the peak velocity is 2.87 m/s, the mean gradient is 17 mmHg, and the valve area based on the continuity equation is .66 cm2, stroke volume index is 17.67 ml/m2. Dobutamine Echo may be helpful Tricuspid Valve Trivial tricuspid regurgitation by color Doppler. Pulmonic Valve Normal pulmonic valve structure and function. Pericardial Effusion No evidence of pericardial effusion. Miscellaneous The ascending aorta appears mildly dilated. The maximum diameter measures 3.6 cm. Pleural Effusion No evidence of pleural effusion. Contractility Score LV regional wall motion:(0-Non visualized 1-Normal 2-Hypokinesis 3-Akinesis 4-Dyskinesis 5-Aneurysm) Signature dtt: Jina Brooks dtd: 08/20/16 1032 Physician Self Edit
--- NOTE | ~2016-08-19 | CATH ---
Cardiac Interventional Report Demographics Patient Name JOHN Raza Gender Male Date of 1935 Age 80 year(s) Patient Number [id number] Date of Study 08/30/2016 Visit Number [id number] Room Number G[address] [place] [id number] Ht 170.18 cm Wt 79 kg Referring David Ward MD Primary Physician Physician Performing Tobias Secondary Physician Physician Azra LEUNG Diagnostic Assisting Physician Physician Interventional Tobias Physician Artillery Or Naval Gunfire Observer Physician Azra LEUNG Findings and Conclusions Interventional Findings and Conclusion Successful PCI of the mid LAD coronary artery using a Drug Eluting stent. Successful PCI of the distal LAD coronary artery using a Drug Eluting stent. Procedure Description The patient was brought to the diagnostic cardiac catheterization-EP laboratory in the fasting, non-sedated state. Informed consent was obtained in the written and verbal form after the risks and benefits were explained. The patient had no further questions and agreed to proceed. The planned puncture-incision site(s) were shaved and prepped with ChloraPrep and draped in the usual sterile manner. Conscious sedation, supplemental oxygen, and pain control medications were delivered by a registered nurse under physician guidance. Surface ECG rhythm, blood pressure measurement, and pulse oximetry were monitored throughout the procedure. Arterial access. The access site was infiltrated with lidocaine. The vessel was entered with the Seldinger technique. A sheath was advanced into the vessel and used for catheter placement. Angioplasty and Stent Placement: A guiding catheter was used to intubate the vessel. A 0.14 wire was then used to cross the lesion. A balloon catheter was placed across the lesion and inflated. The balloon catheter was then removed. A Drug Eluting Stent was placed and inflated. Post placement angiograms were performed. Arterial artery hemostasis was achieved. The patient was transferred to a regular nursing floor via cart accompanied by a nurse. The patient left the laboratory in stable condition. Interventional Cath Status: Urgent Procedure Procedure Type PCI procedure:Drug Eluting Coronary Stent:, LAD Indications: Unstable angina. The procedure was explained in detail to the patient. Risks, complications and alternative treatments were reviewed. Written consent was obtained. Medications Reviewed with Patient prior to Procedure. Angiographic Findings Dominance: Right Cardiac Arteries and Lesion Findings LAD: There is a previous stent on 2nd Diag. Lesion on Mid LAD: Distal subsection.90% stenosis 54 mm length reduced to 0%. Pre procedure ENRIQUE III flow was noted. Post Procedure ENRIQUE III flow was present. The guidewire cross was successful.The lesion was diagnosed as a high risk lesion.Culprit lesion. Devices used - Luge Wire .014 x 182. Number of passes: 3. - Prowater Wire .014 x 180. Number of passes: 1. - Emerge Balloon 2.25 x 20. 4 inflation(s) to a max pressure of: 8 chance. - Promus Premier 2.25 x 32 Stent. 1 inflation(s) to a max pressure of: 11 chance. - Promus Premier 2.5 x 24 Stent. 2 inflation(s) to a max pressure of: 11 chance. Lesion on Dist LAD: Distal subsection.90% stenosis 22 mm length reduced to 0%. Pre procedure ENRIQUE II flow was noted. Post Procedure ENRIQUE III flow was present. The guidewire cross was successful.The lesion was diagnosed as a high risk lesion. Devices used - Emerge Balloon 2.25 x 20. 1 inflation(s) to a max pressure of: 6 chance. - Promus Premier 2.25 x 24 Stent. 3 inflation(s) to a max pressure of: 14 chance. Coronary Tree Procedure Data Procedure Date Date: 08/30/2016Start: 02:19 PMEnd: 03:51 PM Entry Locations - Retrograde Percutaneous access was performed through the Right Femoral artery (Primary location). A 7 Fr sheath was inserted. Hemostasis was successfully obtained using Perclose ProGlide (Jain). Entry Comments: First attempt unsuccessful due to inability to advance wire.. Closure Comments: Deployed by Chelsey BOLDEN. Procedure Medications Order and Administration + + + + + !Time !Medication !Dosage !Route ! + + + + + !08/30/2016 02:02 !0.9% NaCl !20 ml/hr !I.V. drip ! !PM ! ! ! ! + + + + + !08/30/2016 02:11 !Fentanyl !25 mcg !I.V. ! !PM ! ! ! ! + + + + + !08/30/2016 02:16 !Versed !1 mg !I.V. ! !PM ! ! ! ! + + + + + !08/30/2016 02:22 !Integrilin (ACC_7) !14.6 mg !I.V. bolus ! !PM ! ! ! ! + + + + + !08/30/2016 02:25 !Integrilin (ACC_7) !1 mcg/kg/min!I.V. drip ! !PM ! ! ! ! + + + + + 08/30/2016 02:32 !Integrilin (ACC_7) !14.6 mg !I.V. bolus ! !PM ! ! ! ! + + + + + !08/30/2016 02:33 !Nitroglycerin !200 mcg !I.C. ! !PM ! ! ! ! + + + + + !08/30/2016 02:38 !Heparin (ACC_3) !2500 units !I.V. bolus ! !PM ! ! ! ! + + + + + 08/30/2016 02:39 !Fentanyl !25 mcg !I.V. ! !PM ! ! ! ! + + + + + !08/30/2016 02:43 !Oxygen !2 l/min !NC ! !PM ! ! ! ! + + + + + !08/30/2016 02:46 !Oxygen !4 l/min !NC ! !PM ! ! ! ! + + + + + !08/30/2016 03:03 !Oxygen !2 l/min !NC ! !PM ! ! ! ! + + + + + !08/30/2016 03:30 !Nitroglycerin !200 mcg !I.C. ! !PM ! ! ! ! + + + + + !08/30/2016 03:37 !Brilinta (Ticagrelor) !180 mg !P.O. ! !PM !(ACC_20) ! ! ! + + + + + !08/30/2016 03:38 !Heparin (ACC_3) ! !I.V. drip ! !PM ! ! ! ! + + + + + !08/30/2016 03:41 !Oxygen ! !NC ! !PM ! ! ! ! + + + + + !08/30/2016 03:43 !Fentanyl !25 mcg !I.V. ! !PM ! ! ! ! + + + + + Devices Used - A6 Fr. XBLAD 3.5 Guide Catheterwas used for:LAD Intervention. Contrast Material - Isovue 345335 ml Fluoroscopy Time: Diagnostic: 27:06 minutes. Total: 27:06 minutes. Fluoroscopy Dose: Diagnostic: 3775 mGy. Total: 3775 mGy. Estimated Blood Loss: 100 ml. Additional [facility] PCI Information PCI Indication:Staged PCI. Medical History Performed Procedures and Imaging Results - No [facility] stress or imaging studies were performed. Allergies - Iodine:(pre medicated with benadryl and solucortef). Risk Factors The patient risk factors include:cerebrovascular disease, hypertension, last creatinine: 2.2 mg/dl, creatinine clearance: 30.92 ml/min, dyslipidemia, prior heart failure and prior [place] . Admission Data Admission Date: 08/19/2016 Admission Time: 04:53 PM Admit Source: Transfer acute care facility Insurance Payors: Medicare. Admission Medications + +------+------+ + + + + !Medication !Dosage!Times !Last !Last !Administered !Comments ! ! ! !Per !Delivery !Delivery ! ! ! ! ! !Day !Date !Time ! ! ! + +------+------+ + + + + !Beta Caryn! ! ! ! !Yes ! ! !(any) ! ! ! ! ! ! ! + +------+------+ + + + + !Statin (any)! ! ! ! !Yes ! ! + +------+------+ + + + + !Aspirin ! ! ! ! !Yes ! ! !(any) ! ! ! ! ! ! ! + +------+------+ + + + + !Clopidogrel ! ! ! ! !Yes ! ! + +------+------+ + + + + Clinical Evaluation Leading to Procedure - The patient's CAD presentation was assessed as: Unstable angina. - The patient's anginal syndrome during the past two weeks was assessed as: Class IV according to the [place] Cardiovascular Society Classification System (CCS). Anti-anginal medications were prescribed during the past two weeks. The medication is: Beta Blockers. [place] . Ejection Fraction - 08/20/2016 - Method: Echocardiography. EF%: 25. Hemodynamics Condition: Rest O2 Consumption: Estimated: 240.02Heart Rate: 100 bpm Pressures (mmHg) +-----+ + !Site !Pressure ! +-----+ + !AO !171/80 (114) ! +-----+ + !AO !185/83 (122) ! +-----+ + Shunts Oxygen Values O2 Capacity 164.56 O2 Consumption 240.02 Signatures dtt: Azra Collado dtd: 08/30/16 1419 Physician Self Edit
--- NOTE | 2016-08-19 17:03 | NUR ---
Significant Event: Lives in [facility] alone. Went to [facility] for radiation for prostate cancer this morning and upon returning home was in house and noted weakness to left upper and lower extremity as well as slurred speech. Drove self to hospital in [facility]. CT scan of brain was done at [facility]. Transferred from [facility] to [facility] per ambulance for stroke. 9 days ago went to [facility] for TIA and was there for two days and discharged to home.
--- NOTE | 2016-08-19 18:24 | NUR ---
Significant Event: a/o x 3. denies pain. NIHSS=5 for left mouth droop, left lower extremity drift, dullness of sensation to left lower extremity and neck, slurred speech and left visual impairment. Patient states left visual impairment is not new, has been there for over two years. Patient also states numbness and tingling to right hand thumb and next two fingers that is not new. IV to right anticubial. Dr. Luque is admitting doctor. voids per urinal. [facility] has frequent small voids due to prostate issues. [facility] [place] [facility] [place]. skin- has numerous scabbed areas as well as scars to upper and lower extremities.
[2016-08-19 19:30] LABS: ALBUMIN 3.3 gm/dL (3.5-5.0); ALK PHOS 72 IU/L (33-138); ALT 32 IU/L (12-78); ANION GAP 11.4 (10.0-19.0); AST 23 IU/L (10-40); BLOOD UREA NITROGEN 35 mg/dL (6-24); CALCIUM 8.6 mg/dL (8.5-10.5); CHLORIDE 108 mMol/L (96-110); CO2 27 mMol/L (22-32); CREATININE 1.8 mg/dL (0.6-1.3); ESTIMATED GFR (MDRD EQUATION) 37; POTASSIUM 4.4 mMol/L (3.7-5.1); SODIUM 142 mMol/L (135-145); TOTAL BILIRUBIN 0.6 mg/dL (0.0-1.5); TOTAL PROTEIN 7.1 g/dL (6.0-8.4)
[2016-08-19] MEDS ORDERED: ASPIRIN LO-DOSE81 MG PO (19:55)
[2016-08-19] MEDS ORDERED: LIPITOR80 MG PO (19:57)
[2016-08-19] MEDS ORDERED: AMLODIPINE BESYL5 MG PO (19:57)
[2016-08-19] MEDS ORDERED: ASPIRIN EC81 MG PO (19:57)
[2016-08-19] MEDS ORDERED: LOPRESSOR25 MG PO (20:00)
[2016-08-19] MEDS ORDERED: MELATONIN1 MG PO (20:01)
[2016-08-19] MEDS ORDERED: BUSPAR5 MG PO (20:01)
[2016-08-19] MEDS ORDERED: LISINOPRIL20 MG PO (20:02)
[2016-08-19] MEDS ORDERED: PRILOSEC20 MG PO (20:02)
[2016-08-19] MEDS ORDERED: HYDROCHLOROTH12.5 MG PO (20:04)
[2016-08-19] MEDS ORDERED: NITROSTAT0.4 MG SL (20:05)
[2016-08-19] MEDS ORDERED: AZO CRANBERRY1 EAC1 PO (20:05)
[2016-08-19] MEDS ORDERED: [UNRECOGNIZED DRUG - OTHER] PO (20:06)
[2016-08-20 04:41] LABS: ANION GAP 13.2 (10.0-19.0); CALCIUM 8.4 mg/dL (8.5-10.5); CREATININE 1.8 mg/dL (0.6-1.3); POTASSIUM 4.2 mMol/L (3.7-5.1)
--- NOTE | 2016-08-20 04:50 | NUR ---
Significant Event:PATIENT IS ALERT AND ORIENTED. SLIGHT GENERALIZED WEAKNESSS. WANG GOTTEN UP TO SIDE OF BED TO USE URINAL SEVERAL TIMES. PATIENT HAS SLIGHT SLURRED SPEECH, SLIGHT LEFT SIDED FACIAL DROOPING. PATIENT WILL NEED TO RECEIVED CTA HEAD/NECK. GFR IS 37. HOSPITALIST WAS NOTIFIED. PATIENT USES CALL LIGHT APPROPRIATELY. Follow up:
[2016-08-20 04:52] LABS: BASOPHIL # 0.1 K/uL (0.0-0.2); EOSINOPHIL # 0.3 K/uL (0.0-0.5); EOSINOPHIL % 5.4 %; HEMATOCRIT 43.5 % (37.0-53.0); HEMOGLOBIN 14.8 g/dL (11.0-16.0); IMMATURE GRANULOCYTE # 0.1 K/uL (0.0-0.3); IMMATURE GRANULOCYTE % 0.8 %; LYMPHOCYTE # 1.2 K/uL (0.8-4.0); LYMPHOCYTE % 20.2 %; MONOCYTE # 0.6 K/uL (0.0-1.0); MONOCYTE % 10.4 %; MPV 10.9 fl (9.4-12.4); NEUTROPHIL # (ANC) 3.8 K/uL (1.4-9.0); NEUTROPHIL % 62.2 %; NRBC % 0 /100WBC (0-0.00); PLATELET COUNT 140 K/uL (150-450); RBC 4.78 M/uL (3.50-5.50); RDW-CV 13.2 % (11.9-14.6); WBC 6.1 K/uL (4.0-11.0)
--- NOTE | 2016-08-20 12:04 | NUR ---
Introduced self and role of care management to pt. he lives down by [facility] and lives alone. He does have friends in the area. He still drives and sets up his own meds. He states his house is all one level with walk in shower. I asked if anyone helps him out like home health and he states no. He has walked today with walker and he has one at home if needed. Dr Dixon saw and recommends outpt therapy. He states he plans on home and denies the need for hhc. I did recommend [facility] and did give him information on it as well and also encouraged him to talk with his local md. At this time denies needs and he states he will need to call a friend to ocme up and get him. WIll continue to follow and assist as needed.
--- NOTE | 2016-08-20 12:21 | NUR ---
Significant Event: Patient is A&O x3 but forgetful at times. Follows commands. L) arm weaker than the R) and he has numbness & tingling to the L) lower arm and hand. Equal strength to bilateral legs. Slight L) side facial droop. Speech is a little muffled/slurred. L) eye deviates to the L), pupil is slightly bigger than the R), and is more sluggish. Patient states that it is normal for him. NIHSS = 6. VSS but is hypertensive at times. IV to R) AC infusing. Q6H Accuchecks. Up with 1 assist, gait belt, and walker. Uses call light appropriatly. Plan for MRI this afternoon. Plan for possible discharge home tomorrow. Cooperative with cares. Follow up: Monitor neuro.
--- NOTE | 2016-08-20 14:15 | NUR ---
CONSULT RECEIVED PER STROKE PROTOCOL. WILL PROVIDE DIET ED PRIOR TO DC APPROPRIATE.
--- NOTE | 2016-08-21 04:27 | NUR ---
Significant Event: A&Ox3. Forgetful at times. L) arm slightly weaker than R. L) facial droop. L) eye deviates to the L). Speech slurred. N&T to L) hand. Up 1 assist GBW. Complained of some anxiety this am gave xanax pt states that he normally taxes meds for anxiety at home. On tele VSS does run hypertensive. RA lungs clear. Voids frequently does have prostate CA. IV to R) AC SL. Follow up: Possible discharge today
[2016-08-21 04:28] LABS: ALBUMIN 3.6 gm/dL (3.5-5.0); ANION GAP 12.2 (10.0-19.0); CALCIUM 8.9 mg/dL (8.5-10.5); CREATININE 1.9 mg/dL (0.6-1.3); PHOSPHORUS 4.3 mg/dL (2.5-4.9); POTASSIUM 4.2 mMol/L (3.7-5.1)
--- NOTE | 2016-08-21 16:28 | NUR ---
Significant Event: Patient is A&O x3 but is forgetful @ times. Follows commands. L) arm is slightly weaker than the R) arm but legs have equal strength. States he has some N/T to the L) arm. Slight L) facial droop. Speech is slightly muffled/slurred. NIHSS = 4. IV to R) AC SL. VSS but is hypertensive at times. No complaints of pain. Showered today. Up with 1 assist, gait belt, and walker. Cooperative with cares. Follow up: ? home tomorrow.
--- NOTE | 2016-08-22 04:14 | NUR ---
Significant Event: The patient is Alert and Oriented x3. Denied Numbness and tingling. Moves all extremities spontaneously and to command. Up with 1 Assist, gaitbelt and walker. Denies Pain. NIHSS 3. VSS. On room air. PIV to the Right AC saline locked. Follow up:
[2016-08-22 04:46] LABS: ALBUMIN 3.3 gm/dL (3.5-5.0); ANION GAP 14.2 (10.0-19.0); CREATININE 1.9 mg/dL (0.6-1.3); PHOSPHORUS 4.5 mg/dL (2.5-4.9); POTASSIUM 4.2 mMol/L (3.7-5.1)
--- NOTE | 2016-08-22 16:31 | NUR ---
Significant Event: Patient is A&O x3. Follows commands. Equal strength in all extremities except for his L) arm which is slightly weaker. He has some numbness to the L) arm and states that it feels different. He also told me that the L) side of his face feels a little different. Does have a slight L) side facial droop. Speech is a little slurred. L) pupil is a little bigger and more sluggish than the R) but states that it is normal for him. NIHSS = 3. VSS but is a little hypertensive at times. IV to R) AC SL. No complaints of pain. Up with 1 assist, gait belt, and walker. Left the floor today for a MRI of cervical spine. Cooperative with cares. Follow up: Monitor neuro, ? home tomorrow.
--- NOTE | 2016-08-23 04:12 | NUR ---
Significant Event: The patient is Alert and Oriented x3. Denies Numbness and Tingling this shift. Moves all extremities spontaneously and to command. Left side is slightly weaker than his right. Up with SBA, gaitbelt, walker. VSS. On room air. PIV to the Left AC saline locked. NIHSS 3. Abrasions to his arms. Left Pupil deviates to the left (not new). Follow up: Neurosurgery consult today, possibly home
[2016-08-23 05:47] LABS: ALBUMIN 3.1 gm/dL (3.5-5.0); ANION GAP 13.1 (10.0-19.0); CALCIUM 8.9 mg/dL (8.5-10.5); CREATININE 2.1 mg/dL (0.6-1.3); PHOSPHORUS 4.4 mg/dL (2.5-4.9); POTASSIUM 4.1 mMol/L (3.7-5.1)
--- NOTE | 2016-08-23 10:30 | NUR ---
Social visit with pt today. I discussed dc plans and if the plan is home or if he would need a swingbed stay at [place]. He states no he is planning on home. He has a walker and cane there to use. He does not have any family but friends that check on him. I did ask about hhc and he states he likes to get out and about and the last time the therapist did him good but the nurses did him more harm and wanted him to go to the snf and he refused and had anxiety. He lives to be social and get out. I did tell him about outpt therapy and he states there is a nice facility in [place] if needed as well. I did update Nuria YAÑEZ.
--- NOTE | 2016-08-23 12:49 | NUR ---
STROKE DIET ED COMPLETED W/PT. 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 HE GOES TO A LOCAL CAFE FOR ONE MEAL A DAY. HE DOES GO THROUGH THE DRIVE THROUGH AT TIMES FOR HIS EVENING MEAL. PT VOCALIZES THAT AFTER READING THROUGH THE DIET INFORMATION THAT HE IS EATING FOODS HIGH IN FAT AND SODIUM. PT IS RECEPTIVE TO DIET EDUCATION. DISCUSSED FOODS TO LIMIT/AVOID. PT WAS EATING TV DINNERS; DISCUSSED HEALTHIER FROZEN MEAL OPTIONS AND FOODS TO KEEP ON HAND AT HOME THAT ARE LOWER IN FAT AND SODIUM. MEALS ON WHEELS IS NOT AN OPTION. THERE IS WHAT SOUNDS LIKE A SENIOR CENTER, BUT PT DOES NOT WANT TO GO THERE BECAUSE HE STATES," THE FOOD IS NOT GOOD AND THEY DO NOT GIVE YOU MUCH TO EAT." WRITTEN INFORMATION LEFT WITH PT, ALONG WITH RD CONTACT INFORMATION.
[2016-08-23 13:05] LABS: CPK 120 IU/L (35-332)
--- NOTE | 2016-08-23 16:58 | NUR ---
Significant Event: A&Ox3. MRI shows cervial stenosis-per MD no surgical interventions at this time. Slight facial droop to left side. Left eye deviates-baseline for pt. Pt is very talkative-slightly muffled speech. Pt c/o of chronic numbness to right fingers (thumb,index,middle). Pupils reactive to light-left pupil slightly larger. Pt has a murmur and has been hypertensive throughout shift. Cardiac enzymes are negative. At 1600, pt c/o of dull chest pain that does not radiate. MD order EKG. At this point in time, BP was 177/95. Lungs are clear bilaterally-on RA. Pt has CKD-III. Pt has moderate strength, the left side is slightly weaker. SBA, gaitbelt walker. Abrasion to leg and ecchymosis to hand. PIV to left AC IV-SL. Pressures have been 130-180's; HR 80-88; O2 96-97 RA. Afebrile. Pt has knowledge of call light and makes needs known. Follow Up: Cardiology consult JENNIFER-indication recurrent chest pain. Continue per plan of cares.
[2016-08-23 19:54] LABS: BASOPHIL # 0.1 K/uL (0.0-0.2); BASOPHIL % 0.6 %; EOSINOPHIL # 0.4 K/uL (0.0-0.5); EOSINOPHIL % 4.8 %; HEMATOCRIT 46.1 % (37.0-53.0); HEMOGLOBIN 15.3 g/dL (11.0-16.0); IMMATURE GRANULOCYTE % 0.2 %; LYMPHOCYTE # 1.3 K/uL (0.8-4.0); LYMPHOCYTE % 15.2 %; MCH 30.6 pg (27.0-34.0); MCHC 33.2 gm/dL (32.0-36.5); MCV 92.2 fl (83.0-98.0); MONOCYTE # 0.7 K/uL (0.0-1.0); MONOCYTE % 8.3 %; MPV 10.4 fl (9.4-12.4); NEUTROPHIL # (ANC) 6.1 K/uL (1.4-9.0); NEUTROPHIL % 70.9 %; NRBC % 0 /100WBC (0-0.00); PLATELET COUNT 160 K/uL (150-450); RDW-CV 13.2 % (11.9-14.6); WBC 8.5 K/uL (4.0-11.0)
[2016-08-23 20:06] LABS: INR - (THERAPEUTIC) 1.1 (0.9-1.1); PROTIME 11.3 SECONDS (9.6-11.1)
--- NOTE | 2016-08-23 23:22 | NUR ---
Significant Event: Patient is alert and oriented x 3. Denies any kind of pain-denies chest pain so Nitro gtt was not initiated prior to transferring to PCU. Transferred to PCU per Dr. Higginbotham's request r/t chest pain. EKG and troponin ordered for Q6H x 3. Started heparin gtt prior to patient's transfer. Started at 900 units/hr with 4000 bolus. Infusing to left AC with no complications. Moves spontaneously and to command. NIHSS-2 for slight facial droop to left side and left eye deviates (which is baseline for patient). Talkative. Pleasant and cooperative with cares. Good appetite. Left pupil slightly larger than right. Chronic numbness to right fingers (thumb, index, middle). Murmur. HTN. On room air. Lungs clear. Moderate strength, left side slightly weaker. 1PA, gait belt, walker. Abrasion to leg and bruising to hand. Afebrile. SCDs in place.
[2016-08-24 03:16] LABS: ANION GAP 14.4 (10.0-19.0); CALCIUM 9.1 mg/dL (8.5-10.5); CREATININE 2.1 mg/dL (0.6-1.3)
[2016-08-24 03:17] LABS: POTASSIUM 4.4 mMol/L (3.7-5.1)
--- NOTE | 2016-08-24 06:38 | NUR ---
Significant Event: Patient is alert/oriented x3. Vital signs remain stable. On room air. He has denied chest pain throughout the night. Troponin-I's have been negative. On heparin drip at 800 units/hr, next PTT-HP to be drawn at 0930. Follow up: Cardiology to see this AM.
--- NOTE | 2016-08-24 09:04 | NUR ---
PT SCREENED D/T LOS. EST NEEDS: [id number] KCALS, 78-94 GM PROTEIN, 1 ML/KCAL PER KCAL. INTAKE 75-100% CONSISTENLY. NO NUTRITION RELATED DIAGNOSIS IDENTIFIED. WILL ASSIST NEEDED.
[2016-08-24 13:29] LABS: BILIRUBIN URINE NEGATIVE (NEGATIVE); BLOOD URINE 10 /UL (NEGATIVE); COLOR URINE YELLOW (YELLOW); GLUCOSE URINE NEGATIVE (NEGATIVE); KETONE URINE NEGATIVE (NEGATIVE); LEUKOCYTES URINE NEGATIVE /UL (NEGATIVE); NITRITE URINE NEGATIVE (NEGATIVE); PH URINE 6.5 (4.0-8.0); PROTEIN URINE NEGATIVE (NEGATIVE); TURBIDITY URINE CLEAR (CLEAR); UROBILINOGEN URINE NORMAL (NORMAL)
[2016-08-24 13:37] LABS: AMORPHOUS URINE 1+ (NEGATIVE); BACTERIA URINE NEGATIVE (NEGATIVE); EPITHELIAL URINE 0-2 #/HPF (NEGATIVE); MUCUS URINE 1+ (NEGATIVE); WBC URINE 0-2 #/HPF (NEGATIVE)
--- NOTE | 2016-08-24 19:50 | NUR ---
Significant Event: A/O X 3. US KIDNEY AND CHEST X-RAY DONE TODAY. DENIED CHEST PAIN, BUT AT 1729, C/O SHARP PAIN IN MIDSTERNAL CHEST THRU TO SHOULDER BLADES. RATING A 9-10. 02 PLACED AT 2 LPM. INITIATED NITRO GTT. NOTIFIED DR. LEVIN, STAT EKG WITH NO CHANGES NOTED. GIVEN IV LOPRESSOR 1 MG X 2. GIVEN ONE SL NITRO TABLET. AT 1815, WITH RELIEF OF PAIN, BUT HAD A HEADACHE. Follow up: CONT. ON NITRO GTT AND MONITER CARDIAC STATUS. MONITER RENAL STATUS.
[2016-08-25 04:54] LABS: BASOPHIL # 0.1 K/uL (0.0-0.2); BASOPHIL % 0.7 %; EOSINOPHIL # 0.4 K/uL (0.0-0.5); EOSINOPHIL % 5.9 %; HEMATOCRIT 41.7 % (37.0-53.0); HEMOGLOBIN 13.9 g/dL (11.0-16.0); IMMATURE GRANULOCYTE % 0.3 %; LYMPHOCYTE # 1.3 K/uL (0.8-4.0); MCH 30.8 pg (27.0-34.0); MCHC 33.3 gm/dL (32.0-36.5); MCV 92.3 fl (83.0-98.0); MONOCYTE # 0.8 K/uL (0.0-1.0); MONOCYTE % 10.2 %; MPV 10.6 fl (9.4-12.4); NEUTROPHIL # (ANC) 4.8 K/uL (1.4-9.0); NEUTROPHIL % 64.9 %; NRBC % 0 /100WBC (0-0.00); PLATELET COUNT 150 K/uL (150-450); RBC 4.52 M/uL (3.50-5.50); RDW-CV 13.3 % (11.9-14.6); WBC 7.5 K/uL (4.0-11.0)
--- NOTE | 2016-08-25 04:55 | NUR ---
Significant Event: Patient is alert/oriented x3. He has denied any chest pain since nitroglycerin infusion was started prior to shift change. Vital signs have been stable. Continues on 2L O2 per ACS protocol. Dr. Collado called last evening to check on patient status and he recommended to leave patient on nitroglycerin drip. Continues on heparin drip at 700 units/hr, next PTT-HP has been drawn and results pending. Follow up: Continue to monitor cardiac status. Plan?
[2016-08-25 05:08] LABS: ALBUMIN 3.1 gm/dL (3.5-5.0); ANION GAP 13.1 (10.0-19.0); CALCIUM 8.3 mg/dL (8.5-10.5); CREATININE 2.2 mg/dL (0.6-1.3); PHOSPHORUS 5.2 mg/dL (2.5-4.9); POTASSIUM 4.1 mMol/L (3.7-5.1)
--- NOTE | 2016-08-25 15:06 | NUR ---
Social visit with pt today. He is doing well from therapy standpoint and good to go home but now is having a heart cath. At this time denies needs and is keeping his friends updated.
--- NOTE | 2016-08-25 19:47 | NUR ---
Significant Event: A/Ox3. [id number]. P-55-70s. Afebrile. Room air. L) UA midline running bicarb at 77ml/hr and L) AC IV running heparin at 800ml/hr and nitro at 5mcg/hr. R) groin dressing c/d/i. No hematoma or bleeding. Up with 1A- SBA. Besrest until 2330.
--- NOTE | 2016-08-26 05:13 | NUR ---
Significant Event: PATIENT A/O X 3, COOPERATIVE WITH CARES. VSS. RA. DENIES PAIN OVERNIGHT. R)GROIN SOFT, DRESSING C/D/I. NITRO & HEPARIN GTT CONTINUES. PATIENT RESTED WELL OVERNIGHT. Follow up: CONTINUE TO MONITOR PER PLAN OF CARE.
[2016-08-26 06:04] LABS: BASOPHIL % 0.1 %; HEMATOCRIT 39.5 % (37.0-53.0); HEMOGLOBIN 13.5 g/dL (11.0-16.0); IMMATURE GRANULOCYTE % 0.4 %; LYMPHOCYTE # 0.7 K/uL (0.8-4.0); LYMPHOCYTE % 7.1 %; MCH 30.9 pg (27.0-34.0); MCHC 34.2 gm/dL (32.0-36.5); MCV 90.4 fl (83.0-98.0); MONOCYTE # 0.3 K/uL (0.0-1.0); MONOCYTE % 3.5 %; MPV 10.7 fl (9.4-12.4); NEUTROPHIL # (ANC) 8.6 K/uL (1.4-9.0); NEUTROPHIL % 88.9 %; NRBC % 0 /100WBC (0-0.00); PLATELET COUNT 154 K/uL (150-450); RBC 4.37 M/uL (3.50-5.50); WBC 9.6 K/uL (4.0-11.0)
[2016-08-26 06:21] LABS: ALBUMIN 2.9 gm/dL (3.5-5.0); ANION GAP 15.8 (10.0-19.0); CALCIUM 8.6 mg/dL (8.5-10.5); CREATININE 2.4 mg/dL (0.6-1.3); PHOSPHORUS 3.1 mg/dL (2.5-4.9); POTASSIUM 3.8 mMol/L (3.7-5.1)
--- NOTE | 2016-08-26 14:48 | NUR ---
I did talk with pt's nejassi on the phone Niharika Hurst [phone] and she is is financial POA but he is wanting her to be medical as well but have not done the paperwork. I explained I will find a 5 wishes to give him. She is also concerned financially because he does not have a secondary insurance and bills are coming in. I did tell her I would give him our Financial Application and for the doctors to talk with the clinics themselves and see if they have some type of karen care as well. I then went and spoke with pt and he is worried about her getting information and making decisions. I explained she is his legal next of kin and has voiced to nursing and md that he wants her to make decisions. I did tell him nursing has updated her along with the md after the last heart cath. I explained I would find the 5 wishes and come back. I then spoke with Taylor with pallative care and she will go see pt and have him fill out a poa form for his neice. WIll assist as needed. Niharika states she does not plan on coming up but his neighbor will take him home when ready.
--- NOTE | 2016-08-26 15:49 | NUR ---
Significant Event: A/O X 3. HARD OF HEARING AND AT TIMES WILL CONVEY WHAT WE SAY INTO SOMETHING ELSE. FORGETFUL AT TIMES. AFEBRILE. HR SR BBB RATES 57-80'S. PT. ON PO LOPRESSOR. SBP 128-152. RT.GROIN STABLE. PATIENT C/O CRAMPING IN LOWER ABD. THEN WENT TO BATHROOM AND HAD A BM AND FELT BETTER. VISITED WITH CORINNE WILKS. RUT AND FABRICE Mojica WORKED ON GETTING [facility] FOR HIM. SIGNED PAPER NOW ON CHART. NITRO AT 5 CALVIN/MIN AND HEPARIN AT 900 UNITS/HR. NEXT PTTPHP AT 0400 ON 08/27/16. PATIENT STATES HE IS HAVING A SECOND HEART CATH TO FIX THE CORANARY LESION. NO ORDERS SEEN YET. Follow up: NPO AT [facility] FOR POSSIBLE HEART CATH.
[2016-08-27 04:09] LABS: HEMATOCRIT 36.8 % (37.0-53.0); HEMOGLOBIN 12.2 g/dL (11.0-16.0)
[2016-08-27 04:27] LABS: ANION GAP 15.6 (10.0-19.0); CREATININE 2.5 mg/dL (0.6-1.3); MAGNESIUM 2.1 mg/dL (1.3-2.6); POTASSIUM 3.6 mMol/L (3.7-5.1)
--- NOTE | 2016-08-27 04:45 | NUR ---
A/O. FORGETFUL AT TIMES. HR 50-60s. SBP 140-160s. ROOM AIR. AFEBRILE. NITRO OFF. HEPARIN AT 800UNIT/HR. NEXT PTTHP AT 1030. 1A UP TO BATHROOM. BMx1. VOIDS PER URINAL. PLAN FOR POSSIBLE HEARTCATH MODAY. DENIES CHEST PAIN. C/O INDIGESTION SODA AND CRACKERS GIVEN WITH RELIEF NOTED.
--- NOTE | 2016-08-27 16:47 | NUR ---
Significant Event: A/O. VSS on RA. C/O CP this AM, no ekg changes. Nitro up to 20mcg but now weaned off. Up with minimal assist and walker. Bladder scan 245ml. KUB reveals constipation, dulcolax supp to be given. Follow up: cont plan of care
[2016-08-28 04:21] LABS: BASOPHIL % 0.4 %; EOSINOPHIL # 0.4 K/uL (0.0-0.5); EOSINOPHIL % 4.6 %; HEMATOCRIT 36.2 % (37.0-53.0); HEMOGLOBIN 12.1 g/dL (11.0-16.0); IMMATURE GRANULOCYTE % 0.4 %; LYMPHOCYTE # 1.6 K/uL (0.8-4.0); MCH 30.8 pg (27.0-34.0); MCHC 33.4 gm/dL (32.0-36.5); MCV 92.1 fl (83.0-98.0); MONOCYTE # 1.2 K/uL (0.0-1.0); MONOCYTE % 13.2 %; MPV 10.5 fl (9.4-12.4); NEUTROPHIL # (ANC) 5.9 K/uL (1.4-9.0); NEUTROPHIL % 64.4 %; NRBC % 0 /100WBC (0-0.00); PLATELET COUNT 126 K/uL (150-450); RBC 3.93 M/uL (3.50-5.50); RDW-CV 13.5 % (11.9-14.6); WBC 9.1 K/uL (4.0-11.0)
[2016-08-28 04:33] LABS: ANION GAP 12.4 (10.0-19.0); CALCIUM 8.8 mg/dL (8.5-10.5); CREATININE 2.7 mg/dL (0.6-1.3); MAGNESIUM 2.4 mg/dL (1.3-2.6); POTASSIUM 4.4 mMol/L (3.7-5.1)
--- NOTE | 2016-08-28 05:40 | NUR ---
A/O. HR 60s. SBP 120-130s. AFEBRILE. ROOM AIR. HEPARIN AT 800 UNITS/HR. NEXT PTT HP AT 1600. 1A TO BATHROOM. VOIDS PER URINAL. 2 SMALL BM. PLAN FOR HEART CATH TUESDAY OR TUESDAY.
--- NOTE | 2016-08-28 14:36 | NUR ---
Significant Event: A/O. VSS on RA. Denies pain. Up with minimal assist. No BM yet. Colace, miralax and dulocolax suppository given - continues to pass flatus. Follow up: continue plan of care, plan for cath when kidney function improves.
[2016-08-29 05:18] LABS: BASOPHIL % 0.2 %; EOSINOPHIL # 0.5 K/uL (0.0-0.5); HEMATOCRIT 36.7 % (37.0-53.0); HEMOGLOBIN 12.4 g/dL (11.0-16.0); IMMATURE GRANULOCYTE % 0.3 %; LYMPHOCYTE # 1.3 K/uL (0.8-4.0); MCHC 33.8 gm/dL (32.0-36.5); MCV 91.8 fl (83.0-98.0); MONOCYTE # 1.2 K/uL (0.0-1.0); MONOCYTE % 13.3 %; MPV 10.9 fl (9.4-12.4); NEUTROPHIL # (ANC) 5.8 K/uL (1.4-9.0); NEUTROPHIL % 65.2 %; NRBC % 0 /100WBC (0-0.00); PLATELET COUNT 132 K/uL (150-450); RDW-CV 13.7 % (11.9-14.6); WBC 8.9 K/uL (4.0-11.0)
[2016-08-29 05:32] LABS: ANION GAP 13.2 (10.0-19.0); CALCIUM 8.2 mg/dL (8.5-10.5); CREATININE 2.1 mg/dL (0.6-1.3); MAGNESIUM 2.2 mg/dL (1.3-2.6); POTASSIUM 4.2 mMol/L (3.7-5.1)
--- NOTE | 2016-08-29 05:44 | NUR ---
SIGNIFICANT EVENT: A/O X 3. UP IN HALLWAY X 2. STILL NO BM NOTED BUT HE IS STILL PASSING FLATUS. ADEQUATE UOP. HEPARIN DRIP RUNNING AT 900 UNITS/HR WITH THE NEXT PTTHP TO BE DRAWN AT 1130. DID HAVE SOME CHEST DISCOMFORT AFTR SITTING UP TO USE THE URINAL FOR WHICH I GAVE MORPHINE RELIEF WAS NOTED.
--- NOTE | 2016-08-29 14:33 | NUR ---
Significant Event: A/O. VSS on RA. Denies pain. Up with minimal assist. No BM today but patient has bowel sounds and is passing flatus, denies any discomfort or nausea. Follow up: cont to monitor renal function.
--- NOTE | 2016-08-30 05:22 | NUR ---
Significant event: A/O x 3. walked in villag[place] x 2 last night. Heaprin drip at 1100units with next ptthp due at 0700. adequate urine output. vss. plan to have a heart cath with on tuesday if kidney funtion allows.
[2016-08-30 06:58] LABS: BASOPHIL % 0.5 %; EOSINOPHIL # 0.6 K/uL (0.0-0.5); EOSINOPHIL % 7.5 %; HEMATOCRIT 36.9 % (37.0-53.0); HEMOGLOBIN 12.1 g/dL (11.0-16.0); IMMATURE GRANULOCYTE % 0.5 %; LYMPHOCYTE # 1.3 K/uL (0.8-4.0); LYMPHOCYTE % 15.4 %; MCH 30.1 pg (27.0-34.0); MCHC 32.8 gm/dL (32.0-36.5); MCV 91.8 fl (83.0-98.0); MONOCYTE # 1.1 K/uL (0.0-1.0); MONOCYTE % 12.9 %; MPV 10.4 fl (9.4-12.4); NEUTROPHIL # (ANC) 5.1 K/uL (1.4-9.0); NEUTROPHIL % 63.2 %; NRBC % 0 /100WBC (0-0.00); PLATELET COUNT 136 K/uL (150-450); RBC 4.02 M/uL (3.50-5.50); RDW-CV 13.7 % (11.9-14.6); WBC 8.1 K/uL (4.0-11.0)
[2016-08-30 07:12] LABS: ANION GAP 13.4 (10.0-19.0); CALCIUM 8.3 mg/dL (8.5-10.5); CREATININE 2.2 mg/dL (0.6-1.3); MAGNESIUM 2.3 mg/dL (1.3-2.6); POTASSIUM 4.4 mMol/L (3.7-5.1)
--- NOTE | 2016-08-30 11:05 | NUR ---
1101 Stopped by to visit with Brad, he was on the phone so I didn't interrupt him. I did review his chart and also the huddle board. It appears he will be here a bit longer, but they are still anticipating that he will go home upon discharge. Will try to come back and see later. CM to continue to follow and assist.
--- NOTE | 2016-08-30 20:07 | NUR ---
PATIENT HAD HEART CATH BACK TO PCU AT 16:00. STENT X3 TO LAD PER REPORT.RIGHT GROIN SITE HAD HEMATOMA FROM FAMILY SERVICE WORKER, SMALLER THAN MARKED EDGES. SLOW OOZ TO DRESSING WITH BLOODY DRAINAGE. BEDREST FOR 6 HRS. PATIENT ABLE TO VOID, SBP 140-160'S, SATS MID 90'S ON RA.
--- NOTE | 2016-08-31 04:26 | NUR ---
Significant Event: VSS, PT AFEBRILE. CONTINUES ON RA WITH SATS IN THE MID TO UPPE 90'S. PT LAID FLAT FOR 7HRS, WENT TO TURN ON HIS SIDE AND FELT A POP. PT REACHED DOWN AND FELT BLOOD ON HIS GOWN, HAD POPPED GROIN SITE. CALLED MD, RECEIVED ORDERS TO HOLD MANUAL PRESSURE FOR 30 MIN AND REPLACE DRESSING. PRESSURE HELD, BLEEDING AND HEMATOMA RESOLVED, NEW DRESSING PLACED. GROIN SITE HAS REMAINED SOFT WITH BRUSING. PT HAS NO CO PAIN. VOIDING WELL PER URINAL. BICARB AND INTEGRILIN OFF. Follow up:
[2016-08-31 05:13] LABS: HEMATOCRIT 34.9 % (37.0-53.0); HEMOGLOBIN 11.8 g/dL (11.0-16.0); MCH 30.6 pg (27.0-34.0); MCHC 33.8 gm/dL (32.0-36.5); MCV 90.6 fl (83.0-98.0); MPV 10.8 fl (9.4-12.4); PLATELET COUNT 152 K/uL (150-450); RBC 3.85 M/uL (3.50-5.50); RDW-CV 13.3 % (11.9-14.6); WBC 11.5 K/uL (4.0-11.0)
[2016-08-31 05:27] LABS: ALBUMIN 2.6 gm/dL (3.5-5.0); ANION GAP 13.1 (10.0-19.0); CALCIUM 8.4 mg/dL (8.5-10.5); CREATININE 2.2 mg/dL (0.6-1.3); POTASSIUM 4.1 mMol/L (3.7-5.1)
[2016-08-31 05:28] LABS: TOTAL BILIRUBIN 0.4 mg/dL (0.0-1.5)
[2016-08-31 05:55] LABS: ABSOLUTE NEUTROPHIL CT (ANC) 10.4 K/uL (1.4-9.0); BANDED NEUTROPHIL # 0.6 K/uL (0.0-0.1); BANDED NEUTROPHILS % 5 %; LYMPHOCYTE # 0.7 K/uL (0.8-4.0); LYMPHOCYTE % 6 %; MONOCYTE # 0.3 K/uL (0.0-1.0); SEGMENTED NEUTROPHIL # 9.8 K/uL (1.4-9.0); SEGMENTED NEUTROPHIL % 85 %
--- NOTE | 2016-08-31 13:51 | NUR ---
Supporitive visit with pt and Pat with therapy. Pt is doing well and ambulating 600 ft and plan is home in the next [address] a 30 day free Brilinta card on the front of the chart for him. Will assist as needed.
--- NOTE | 2016-08-31 17:49 | NUR ---
Significant Event: A/O X 3. AMBULATES SB ASSIST IN HALLWAYS. NEED TO ENCOURAGE ORAL FLUIDS X 2 DAYS, AT LEAST 60-70 ML. MUGA TESTING TODAY, TO CHECK EF OF HEART. Follow up: CONT. MONITERING CARDIAC AND RENAL FUNCTION.
[2016-09-01 04:24] LABS: BASOPHIL % 0.3 %; EOSINOPHIL # 0.6 K/uL (0.0-0.5); EOSINOPHIL % 4.7 %; HEMATOCRIT 33.8 % (37.0-53.0); HEMOGLOBIN 11.4 g/dL (11.0-16.0); IMMATURE GRANULOCYTE # 0.1 K/uL (0.0-0.3); IMMATURE GRANULOCYTE % 0.7 %; LYMPHOCYTE # 1.5 K/uL (0.8-4.0); LYMPHOCYTE % 11.2 %; MCH 31.2 pg (27.0-34.0); MCHC 33.7 gm/dL (32.0-36.5); MCV 92.6 fl (83.0-98.0); MONOCYTE # 1.3 K/uL (0.0-1.0); MONOCYTE % 9.7 %; MPV 10.5 fl (9.4-12.4); NEUTROPHIL # (ANC) 9.8 K/uL (1.4-9.0); NEUTROPHIL % 73.4 %; NRBC % 0 /100WBC (0-0.00); PLATELET COUNT 165 K/uL (150-450); RBC 3.65 M/uL (3.50-5.50); RDW-CV 13.8 % (11.9-14.6); WBC 13.3 K/uL (4.0-11.0)
[2016-09-01 04:37] LABS: ANION GAP 12.2 (10.0-19.0); CALCIUM 8.7 mg/dL (8.5-10.5); CREATININE 2.2 mg/dL (0.6-1.3); POTASSIUM 4.2 mMol/L (3.7-5.1)
--- NOTE | 2016-09-01 05:08 | NUR ---
Significant events: Pt A/Ox3. VSS. No complaints of pain. Up 1PA. Encouraged oral intake although pt did not do well. R) groin CDI, eccymosis noted. MUGA study showed EF of 37%. Slept most of shift.
[2016-09-01] MEDS ORDERED: BRILINTA90 MG PO (11:13)
[2016-09-01] MEDS ORDERED: FLOMAX0.4 MG PO (11:13)
[2016-09-01] MEDS ORDERED: TYLENOL325 MG PO (11:14)
--- NOTE | 2016-09-01 11:31 | NUR ---
Talked with patient, going home today, requests financial assistance form so I gave one to him, denies other needs.
[2016-09-01 12:31] LABS: BILIRUBIN URINE NEGATIVE (NEGATIVE); BLOOD URINE NEGATIVE /UL (NEGATIVE); COLOR URINE YELLOW (YELLOW); GLUCOSE URINE NEGATIVE (NEGATIVE); KETONE URINE NEGATIVE (NEGATIVE); LEUKOCYTES URINE NEGATIVE /UL (NEGATIVE); NITRITE URINE NEGATIVE (NEGATIVE); PROTEIN URINE NEGATIVE (NEGATIVE); TURBIDITY URINE CLEAR (CLEAR); UROBILINOGEN URINE NORMAL (NORMAL)
--- NOTE | 2016-09-01 16:33 | NUR ---
Patient dismissed to home with friend. Denies question or concern of discharge. Verbalizes understanding of instructions. Discussed meds at length. Heart cath site remains WNL, eccyhmotic. Rikki carranza. Dr Appointments discussed. Patient states he has rides set up for dr appointments. Patient verbalizes understanding.
[2016-09-21] MEDS ORDERED: PLAVIX75 MG PO (15:52)
[2016-09-21] MEDS ORDERED: LASIX40 MG PO (15:52)
[2016-09-21] MEDS ORDERED: NORVASC10 MG PO (15:52)
[2016-09-21] MEDS ORDERED: COREG25 MG PO (15:53)
[2016-09-23] MEDS ORDERED: ZETIA10 MG PO (11:28)
--- NOTE | 2016-12-14 13:17 | NUR ---
Received consult that patient may need help on discharge, Jasmyn Loja APRN talked with pt friend/person trying to assist him Taylor Brigido (works at [facility] [phone]) and to see if [facility] will accept him. Called Esther Agosto at [facility] and pt has had an outpt procedure, no inpatient stay and so would be self pay at [facility], and they are unable to accept self pay. They have tried multiple times in the past to get him financial assistance and he won't follow through with requirements to do so. Talked with patient, he said he thinks he can go home. Asked who helps him at home, he said Taylor Erickson and a shinto group help him as needed. They will come get him. Explained he can't go to [facility] and he says he doesn't think he needs to, that he will be fine at home, won't lift his arm over his head. Says he would like to stay until tomorrow because he is tired. Talked with Jasmyn Loja APRN and then talked with patient again and explained that he is ready for discharge today and asked if he would like Home Health to follow at home and make sure he does okay. He says that would be fine, that he understands he can't raise that arm above his head or carry or lift anything. Asked who will come get him and he said Taylor Guzman would know, she helped arrange his rides. I called her at [facility] and let her know is an outpt procedure and can't go to [facility], that we can order Home Health and pt ready for discharge today. She said she would call the shinto group to arrange his ride home today and whoever is coming to get him will call and let us know what time they will be here after 3:00 pm. Let patient know, he is agreeable, let Jasmyn Loja APRN know. She and Dr Bonds will complete dc orders. Let nurse know.
--- NOTE | 2016-12-14 16:24 | NUR ---
Called [facility] in [place] and faxed referral and orders. They will call patient to arrange a time to visit.
== END 2016-09-01 16:17 | disposition disaster alternative care site (69) | DRG 982 ==
LOC: GNTU 16:53 → GPCU 16:53 → GNTU 08-23 06:26 → GPCU 08-23 20:34
PROVIDERS: Family Medicine; Hospitalist; Internal Medicine; Internal Medicine Cardiovascular Disease; Internal Medicine Interventional Cardiology; Nurse Practitioner; Nurse Practitioner Family; ADMIT Internal Medicine
PROC: B246ZZZ Ultrasonography of Right and Left Heart (ICD-10-PCS; principal; 2016-08-20)
PROC: F00ZJWZ Instrumental Swallowing and Oral Function Assessment using Swallowing Equipment (ICD-10-PCS; principal; 2016-08-20)
PROC: B2111ZZ Fluoroscopy of Multiple Coronary Arteries using Low Osmolar Contrast (ICD-10-PCS; 2016-08-25)
PROC: 4A023N7 Measurement of Cardiac Sampling and Pressure, Left Heart, Percutaneous Approach (ICD-10-PCS; 2016-08-25)
PROC: B246ZZZ Ultrasonography of Right and Left Heart (ICD-10-PCS; 2016-08-26)
PROC: 027034Z Dilation of Coronary Artery, One Artery with Drug-eluting Intraluminal Device, Percutaneous Approach (ICD-10-PCS; 2016-08-30)
DX: I63.9 Cerebral infarction, unspecified (principal); I25.110 Atherosclerotic heart disease of native coronary artery with unstable angina pectoris; N17.9 Acute kidney failure, unspecified; Q60.0 Renal agenesis, unilateral; I13.0 Hypertensive heart and chronic kidney disease with heart failure and stage 1 through stage 4 chronic kidney disease, or unspecified chronic kidney disease; I50.22 Chronic systolic (congestive) heart failure; M48.02 Spinal stenosis, cervical region; G81.94 Hemiplegia, unspecified affecting left nondominant side; C64.9 Malignant neoplasm of unspecified kidney, except renal pelvis; C61 Malignant neoplasm of prostate; E78.00 Pure hypercholesterolemia, unspecified; N18.3 Chronic kidney disease, stage 3 (moderate); I73.9 Peripheral vascular disease, unspecified; Z90.5 Acquired absence of kidney; Z85.528 Personal history of other malignant neoplasm of kidney
CPT/HCPCS: A9539; A9540; A9560; C1725; C1751; C1760; C1769; C1874; C1887; C8929; C9113; C9600; J0360; J1200; J1327; J1644; J2250; J2270; J2930; J3010; J7030; J7060; J7120; J7512; Q9957

== ENCOUNTER → 2016-09-23 | Day surgery (SDC) | payer MEDICARE ==
[~2016-09-23] VITALS: Ht 162.6 cm; Wt 77.2 kg
[~2016-09-23] MED LIST: AMLODIPINE BESYL5 MG PO; ASPIRIN EC81 MG PO; ASPIRIN LO-DOSE81 MG PO; AZO CRANBERRY1 EAC1 PO; BRILINTA90 MG PO; BUSPAR5 MG PO; COREG25 MG PO; FLOMAX0.4 MG PO; HYDROCHLOROTH12.5 MG PO; LASIX40 MG PO; LIPITOR80 MG PO; LISINOPRIL20 MG PO; LOPRESSOR25 MG PO; MELATONIN1 MG PO; NITROSTAT0.4 MG SL; NORCO 5-325 TA1 EACH PO; NORVASC10 MG PO; PLAVIX75 MG PO; PRILOSEC20 MG PO; PRINCIPEN 250250 MG PO; TYLENOL325 MG PO; ZETIA10 MG PO; [UNRECOGNIZED DRUG - OTHER] PO
--- NOTE | ~2016-09-23 | ECHO ---
Transesophageal Echocardiography Report (ORAL) Demographics Patient Name MAURISIO LOPEZ Date of Study 09/23/2016 Patient Number [id number] Visit Number [id number] Date of 1935 Room Number Gender Male Number Age 80 year(s) Referring Cecilia Awad Tie Cutter Macarena Loja MD RDCS, RVT Physician Interpreting Cecilia Plastic Sheets Supervisor Physician Ritesh Loja MD Supervising Ordering Cecilia MD/MLP Physician Ritesh Loja MD Nurse Stress Treadle Cut Off Saw Operator Conclusions Summary The left ventricle is mildly dilated . Dilated cardiomyopathy Estimated EF: 20 %. Generalized hypokinesis. Moderate mitral regurgitation. There is mild to moderate aortic regurgitation. Moderate to severe aortic stenosis. Peak velocity 3.2 m/sec HAYDEE by planimetry 0.9cm2 Severe proximal descending aorta atherosclerosis with highly mobile elements and ulcerations Procedure Type of Study ORAL procedure:Color Doppler. Procedure Date Date: 09/23/2016 Start: 09:54 AM Study Location: Inpatient Portable Technical Quality: Adequate visualization Indications:Aortic stenosis. Patient Status: Routine HR: 69 bpm BP: 162/80 mmHg O2 Saturation: 94 % ORAL Performed By: Jina Brooks MD Type of Anesthesia: Moderate sedation Allergies - Iodine:(pre medicated with benadryl and solucortef). M-Mode/2D Measurements Cardiac Output: 5.79 l/min LVOT: 2.2 cm LVOT VTI: 22.1 cm LV Stroke volume: 83.97 ml Doppler Measurements AV Peak Velocity: 3.11 m/s AV Peak Gradient: 38.69 mmHg AV Mean Gradient: 22 mmHg LVOT Peak Velocity: 0.91 m/s Findings Left Ventricle The left ventricle is mildly dilated . Dilated cardiomyopathy Estimated EF: 20 %. Generalized hypokinesis. Right Ventricle Normal right ventricular size and function. Left Atrium No left atrial masses including the appendage. No evidence of PFO by colour Doppler. Right Atrium The right atrium is not dilated. Mitral Valve Moderate mitral regurgitation. Aortic Valve There is mild to moderate aortic regurgitation. Moderate to severe aortic stenosis. Peak velocity 3.2 m/sec HAYDEE by planimetry 0.9cm2 Tricuspid Valve Mild tricuspid regurgitation . Pulmonic Valve Mild pulmonic valve regurgitation. Pericardial Effusion No pericardial effusion. Miscellaneous Severe proximal descending aorta atherosclerosis with highly mobile elements and ulcerations Signature dtt: Jina Brooks dtd: 09/23/16 0954 Physician Self Edit
[2016-09-23 11:28] LABS: CALCIUM 8.3 mg/dL (8.5-10.5); CREATININE 2.3 mg/dL (0.6-1.3)
== END ==
LOC: GOPD 09-21
PROVIDERS: Internal Medicine Cardiovascular Disease
DX: I08.0 Rheumatic disorders of both mitral and aortic valves (principal); I42.0 Dilated cardiomyopathy; I13.0 Hypertensive heart and chronic kidney disease with heart failure and stage 1 through stage 4 chronic kidney disease, or unspecified chronic kidney disease; E11.22 Type 2 diabetes mellitus with diabetic chronic kidney disease; N18.9 Chronic kidney disease, unspecified; I50.20 Unspecified systolic (congestive) heart failure; I49.3 Ventricular premature depolarization; I25.10 Atherosclerotic heart disease of native coronary artery without angina pectoris; Z79.82 Long term (current) use of aspirin; Z79.899 Other long term (current) drug therapy; Z98.890 Other specified postprocedural states
CPT/HCPCS: J7030

== ENCOUNTER 2016-12-13 09:32 | Outpatient (CLI) | payer MEDICARE ==
[~2016-12-13] VITALS: Ht 165.1 cm; Wt 81.0 kg
--- NOTE | ~2016-12-13 | OR ---
PATIENT'S NAME: MAURISIO LOPEZ [facility] AGE: 81 Y [address] ROOM: [place] [address] LOCATION: GPCU ADMIT DATE: 12/13/2016 OR/Procedure Report DISCHARGE DATE: FAMILY PHYSICIAN: Nima Ferro MD ATTENDING PHYSICIAN: Scott Bonds SURGEON: Scott Bonds DO UNIT AIDE TECH: DATE OF PROCEDURE: 12/13/2016 PREOPERATIVE DIAGNOSIS: Nonischemic cardiomyopathy. Ejection fraction of 20% with cardiac dyssynchrony, and QRS greater than 160. POSTOPERATIVE DIAGNOSIS: Nonischemic cardiomyopathy. Ejection fraction of 20% with cardiac dyssynchrony, and QRS greater than 160. REFERRING PHYSICIAN: Jina Brooks MD BRIEF HISTORY: Mr. Lopez is a 81-year-old white male with the above-noted diagnosis. DESCRIPTION OF PROCEDURE: The patient has been brought to the catheterization lab today for placement of his device. He was sterilely prepped and draped in the usual fashion. The left infraclavicular space was anesthetized with 1% lidocaine after appropriate IV sedation was achieved, and the subclavian vein was accessed x3 and guidewires fed without resistance under fluoroscopic guidance into the right atrium. An incision was created and pocket was formed with electrocautery, and the guidewires were brought through the incision, and via sheath and dilator assembly, we placed our leads. We began with our right ventricular lead. It was a [employer] [place] 4-Site G, model 0295, serial number was [id number]. The lead was then placed into the floor of the right ventricle near the apex, sensing R-waves of 24.0 with a measured threshold of 0.9 V at 0.5 milliseconds with a pacing impedance of 718 ohms and a shocking impedance of 56 ohms. It was secured to the pectoral fascia and then the guidance system for access in the coronary sinus was placed. Coronary sinus was quite difficult to access and multiple guides were used, and we finally were able to access with the hook cannula and a 90-degree inner cannula, and finally, we were able to access the coronary sinus. The outer cannula was advanced over the guidewire and over the inner cannula into the coronary sinus. The inner cannula and guidewire were removed. Placement was confirmed with venography. We then placed our left ventricular lead over a 14- [place] guidewire into the lateral branch. It was a [employer] Acuity X4 straight lead, model 4671, serial number was [id number]. These were sensing LV waves of 18.1 with a threshold of 0.9 V at 0.5 milliseconds. Sensing from LV tip 1 to LV ring 2 with a measured threshold of 937 ohms. The guidance system was removed without dislodgement of the lead and the lead was secured to the PATIENT'S NAME: MAURISIO LOPEZ [facility] AGE: 81 Y [address] ROOM: [place] [address] LOCATION: GPCU ADMIT DATE: 12/13/2016 OR/Procedure Report DISCHARGE DATE: FAMILY PHYSICIAN: Nima Ferro MD ATTENDING PHYSICIAN: Scott Bonds pectoral fascia. Finally, our atrial lead was placed. This was a [employer] Ingevity MRI, model 7741, serial number was [id number]. It was placed in the right atrial appendage. Sensing P-waves of 5.4 with a measured threshold of 0.6 V at 0.5 milliseconds with a pacing impedance of 650 ohms. All three leads were now connected to the generator which was a [employer] Inogen X4 PENCILLER-D device, model was G148, serial number was [id number]. Leads and generator placed into the pocket. Appropriate sensing and pacing was noted. The incision was then closed in a layered fashion with 2-0 Vicryl and 4-0 Monocryl, and pressure dressings were applied. The patient tolerated the procedure well and was transferred to the recovery area in stable condition. DO LUIS RIVERA/genet /[id number] d: 12/14/16 1330 t: 12/15/16 0754, OPERATIVE SUMMARY
[~2016-12-13 09:32] MED LIST changes: -NORCO 5-325 TA1 EACH PO; -PRINCIPEN 250250 MG PO
[2016-12-13 10:30] LABS: BILIRUBIN URINE NEGATIVE (NEGATIVE); BLOOD URINE 10 /UL (NEGATIVE); COLOR URINE STRAW (YELLOW); GLUCOSE URINE NEGATIVE (NEGATIVE); KETONE URINE NEGATIVE (NEGATIVE); LEUKOCYTES URINE 500 /UL (NEGATIVE); NITRITE URINE NEGATIVE (NEGATIVE); PROTEIN URINE 15 mg/dL (NEGATIVE); UROBILINOGEN URINE NORMAL (NORMAL)
[2016-12-13 10:35] LABS: TURBIDITY URINE 1+ (CLEAR)
[2016-12-13 10:36] LABS: WBC URINE FULL FIELD #/HPF (NEGATIVE)
[2016-12-13 10:37] LABS: AMORPHOUS URINE 1+ (NEGATIVE); BACTERIA URINE FEW (NEGATIVE); EPITHELIAL URINE 0-2 #/HPF (NEGATIVE); MUCUS URINE 1+ (NEGATIVE); WBC CLUMPS URINE FEW (NEGATIVE)
[2016-12-13 10:43] LABS: INR - (THERAPEUTIC) 1.02 (0.92-1.07); PROTIME 10.7 SECONDS (9.8-11.4)
[2016-12-13 10:53] LABS: ALBUMIN 3.7 gm/dL (3.5-5.0); ANION GAP 12.8 (10.0-19.0); CALCIUM 9.1 mg/dL (8.5-10.5); CREATININE 2.4 mg/dL (0.6-1.3); PHOSPHORUS 4.4 mg/dL (2.5-4.9); POTASSIUM 3.8 mMol/L (3.7-5.1)
--- NOTE | 2016-12-13 18:55 | NUR ---
Significant Event: TO PCU FROM PACU AT 1545 FOLLOWING BI-V PACEMAKER INSERTION; MEDIPORE DRESSING REMAINS C/D/I AND ICE PACK APPLIED. IMMOBILIZER TO LT)ARM IS ALSO ON AND INTACT. VOIDS WITH 250 MLS UOP PER URINAL. PCXR DONE. 1 TAB NORCO AT 1711 FOR INCISIONAL PAIN. Follow up: CONTINUE PLAN OF CARE.
--- NOTE | 2016-12-14 05:47 | NUR ---
Significant Event: A/0X3. RESTED IN BED ALL OF SHIFT. TURNED SELF. AFEBRILE. VSS ON RA. IV TO L) FA WITH NS @ 75 MLS/H. NORCO GIVEN X2. LAST DOSE WAS AT 0316. PATIENT WAS ABLE TO FIND SOME RELIEF AND REST OFF AND ON THROUGHOUT THE NIGHT. ALSO APPLIED ICE TO SITE PRN. IMMOBILZER TO L) ARM. DRESSING TO PACER SITE C/D/I. VOIDS FINE. NO BM THIS SHIFT. D/C MEDS PRINTED AND ON THE CHART. D/C HOME TODAY. CHEST XRAY THIS AM. Follow up: CONTINUE WITH PLAN OF CARE.
[2016-12-14] MEDS ORDERED: PRINCIPEN 250250 MG PO (13:37)
[2016-12-14] MEDS ORDERED: NORCO 5-325 TA1 EACH PO (13:42)
--- NOTE | 2016-12-14 16:04 | NUR ---
Patient dismissed to home with home health. Patient denies question or concern of dismissal. Explained that patient needs to have new medications filled and explained which ones were prescriptions also showed the volunteer race car driver which sheets were the prescriptions. Patient dismissed via wheelchair out west tower entrance.
--- NOTE | 2016-12-15 09:40 | NUR ---
Received call back from DALI Cameron at [facility], she got the orders yesterday and will contact pt today to set up time to go admit to .
== END 2016-12-14 15:25 | disposition home health service (06) ==
LOC: GPCU 09:32 → GPOC 09:32 → GPCU 15:45 → GPOC 12-14 15:25
PROVIDERS: Thoracic Surgery (Cardiothoracic Vascular Surgery)
PROC: 02H63JZ Insertion of Pacemaker Lead into Right Atrium, Percutaneous Approach (ICD-10-PCS; principal; 2016-12-13)
DX: Z01.818 Encounter for other preprocedural examination (principal); I42.8 Other cardiomyopathies
CPT/HCPCS: C1882; C1895; C1898; C1900; J0690; J1200; J2001; J2250; J3010; J7030; J7120